=== PATIENT | male | born 1970 | race African-American/Black ===

== ENCOUNTER 2019-02-10 17:24 | Inpatient (IN) | payer OTHER ==
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
[2019-02-10] MEDS ORDERED: hydrOXYzine PAMOATE 25 MG CAPSULE (FP) PO PRN (23:15)
[2019-02-10] MEDS ORDERED: BISMUTH SUBSALICYLATE 524 MG/30 ML UD PO PRN (23:15)
[2019-02-10] MEDS ORDERED: ACETAMINOPHEN 325 MG TABLET (FP) PO PRN ×2 (23:15)
[2019-02-10] MEDS ORDERED: MAGNESIUM CITRATE 300 ML BOTTLE PO PRN (23:15)
[2019-02-10] MEDS ORDERED: P-EPHED 60MG/TRIPROLIDI 2.5MG TABLET PO PRN (23:15)
[2019-02-10] MEDS ORDERED: DICYCLOMINE HCL 10 MG CAPSULE PO PRN (23:15)
[2019-02-10] MEDS ORDERED: guaiFENesin 200 MG/10 ML 10 ML UNIT-DOSE CUPS PO PRN (23:15)
[2019-02-10] MEDS ORDERED: IBUPROFEN 400 MG TABLET (FP) PO PRN (23:15)
[2019-02-10] MEDS ORDERED: chlordiazePOXIDE HCL 25 MG CAPSULE PO PRN (23:15)
[2019-02-10] MEDS ORDERED: MAG HYDROX/AL HYDROX/SIMETH 30 ML UNIT-DOSE CUP PO PRN (23:15)
[2019-02-10] MEDS ORDERED: NICOTINE POLACRILEX 2 MG GUM BUC PRN (23:15)
[2019-02-10] MEDS ORDERED: MENTHOL/PHENOL 1 EACH UD MM PRN (23:15)
[2019-02-10] MEDS ORDERED: METHOCARBAMOL 500 MG TABLET PO PRN (23:15)
[2019-02-10] MEDS ORDERED: MAGNESIUM HYDROX 2400MG/30ML ORAL SUSPENSION 30 ML CUP PO PRN (23:15)
[2019-02-10] MEDS ORDERED: ONDANSETRON *ODT* 4 MG TABLET SL PRN (23:15)
[2019-02-11] MEDS: chlordiazePOXIDE HCL 25 MG CAPSULE PO SCH ×5 (00:47→22:29)
--- NOTE | 2019-02-11 10:21 | PN ---
S CIWA - CIWA Score Nausea/Vomitin-No Nausea/No Vomiting Muscle Tremors: 3 Anxiety: 3 Agitation: 3 Paroxysmal Sweats: 3 Orientation: 0-Oriented Tacttile Disturbances: 0-None Auditory Disturbances: 0-None Visual Disturbances: 0-None Headache: 0-None Present CIWA-Ar Total Score: 12 BHS Progress Note (SOAP) Subjective: agitation irritable interrupted sleep sweats Objective: 02/11/19 10:20 Vital Signs Temperature 97.9 F 02/11/19 09:13 Pulse Rate 81 02/11/19 09:13 Respiratory Rate 18 02/11/19 09:13 Blood Pressure 140/75 02/11/19 09:13 O2 Sat by Pulse Oximetry (%) labs pending aaox3 ambulating no acute distress Assessment: 02/11/19 10:21 withdrawal sx Plan: continue detox increase fluids
[2019-02-11] MEDS: PRENATAL VITAMINS W/ FOLIC ACID TABLET (FP) PO SCH (10:36)
[2019-02-11] MEDS: NICOTINE 21 MG/24 HOURS TOPICAL PATCH TD SCH (10:36)
--- NOTE | 2019-02-11 11:50 | CONSULT ---
[facility] Psychiatric Consult - Data Date of interview: 02/11/19 Admission source: Self-referred Identifying data: Mr Adrian is a 48 years old single Black male, father of 2 daughters, unemployed receiving SSI, homeless seeking detox treatment for alcohol and cocaine Substance Abuse History: Reports history of alcohol and cocaine use. Refer to addiction conselor's summary for further information Medical History: Unremarkable except for 7 Fingers amputated in 1994 from frostbite(distal amputations). Smokes cigarettes 1ppd Psychiatric History: Patient is well known to [facility] from a previoua admission in this facility in May 2016. He reports that his first psychiatric contact occured more than 20 years ago when he was diagnosed with Bipolar Depression. Reports history of 2 previous psychiatric hospitalizations both at [facility]. Most recent one was in 2010 for depression in the context of alcohol intoxication. Reports that he used to receive psychiatric outpatient services at [facility] and his case was closed because of his drinking. In early 2015, he was residing at [facility] where he was seeing a psychiatrist and was prescribed Depakote 500 mg po BID, Seroquel 100 mg po HS, Zoloft 100 mg po daily and Abilify. He was unsue of Abilify dosage. In May 2016 he was admitted to this facility for both detox and rehab and he was discharged on 07/05/2016 on Depakote 500 mg po BID, Seroquel 100 mg po HS, Zoloft 100 mg po daily and Abilify 10 mg po daily. Reports no adherence to OPD care and medication. Told journalists and other writers that he last took medictions(Zoloft, Seroquel) sometime i 2017. Denies previos suicidal attempt. At present, denies exoeriencing psychotic, manic or depressive symptoms, S/H ideations. However, reports sleeping poorly Physical/Sexual Abuse/Trauma History: Denies history of Physical, sexual abuse as well as DV relationship Additional Comment: Denies criminal record Mental Status Exam - Mental Status Exam Alert and Oriented to: Time, Place, Person Cognitive Function: Fair Patient Appearance: Well Groomed Mood: Hopeful, Euthymic Affect: Constricted Patient Behavior: Cooperative Speech Pattern: Clear Voice Loudness: Normal Thought Process: Intact, Goal Oriented Hallucinations: Denies Suicidal Ideation: Denies Homicidal Ideation: Denies Insight/Judgement: Poor Sleep: Poorly Appetite: Poor Muscle strength/Tone: Normal Gait/Station: Normal Psychiatric Findings - Problem List ([place] 1, 2,3) (1) Bipolar disorder Current Visit: Yes Status: Chronic (2) Substance-induced sleep disorder Current Visit: Yes Status: Acute (3) Alcohol dependence with uncomplicated withdrawal Current Visit: Yes Status: Acute (4) Cocaine dependence Current Visit: Yes Status: Acute Qualifiers: Substance use status: uncomplicated Qualified Code(s): F14.20 - Cocaine dependence, uncomplicated (5) Nicotine dependence Current Visit: Yes Status: Chronic (6) s/p multiple distal digit amputations [place]. Current Visit: No Status: Active (7) History of abdominal surgery Current Visit: No Status: Acute - Initial Treatment Plan Initial Treatment Plan: 1) Start Zoloft 50 mg po daily and Seroquel 100 mg po HS. 2) Continue inpatient detoxification
[2019-02-11 12:26] LABS: HEMATOCRIT 40.3 % (35.4-49); HEMOGLOBIN 13.4 GM/dL (11.7-16.9); MCHC 33.2 g/dl (32.0-35.9); MEAN CELL VOLUME 87.2 fl (80-96); MEAN PLT VOLUME 7.6 fl (7.5-11.1); PLATELET COUNT 351 K/MM3 (134-434); RBC 4.62 M/mm3 (4.00-5.60); RDW 13.9 % (11.9-15.9)
[2019-02-11 12:28] LABS: EPI CELLS 3.8 /HPF (0-5); URINE APPEARANCE CLEAR; URINE BACTERIA 2.2 /hpf (NEGATIVE); URINE BILIRUBIN NEGATIVE (NEGATIVE); URINE CASTS 126 /hpf (0-8); URINE COLOR DK YELLOW; URINE GLUCOSE (UA) NEGATIVE (NEGATIVE); URINE KETONE TRACE (NEGATIVE); URINE LEUK ESTERASE TRACE (NEGATIVE); URINE NITRITE NEGATIVE (NEGATIVE); URINE PROTEIN TRACE (NEGATIVE); URINE RBC 3 /hpf (0-4); URINE WBC 2 /hpf (0-5)
[2019-02-11 12:33] LABS: ALBUMIN 3.8 g/dl (3.4-5.0); ALK PHOS 87 U/L (45-117); ANION GAP 9 MMOL/L (8-16); BILIRUBIN,TOTAL 0.2 mg/dL (0.2-1); BLOOD UREA NITROGEN 15 mg/dL (7-18); CALCIUM 9.3 mg/dL (8.5-10.1); CHLORIDE 107 mmol/L (98-107); CO2 26 mmol/L (21-32); CREATININE 1.1 mg/dL (0.55-1.3); GLUCOSE,RANDOM 80 mg/dL (74-106); POTASSIUM 3.6 mmol/L (3.5-5.1); SGOT/AST 21 U/L (15-37); SGPT/ALT 22 U/L (13-61); SODIUM 142 mmol/L (136-145); TOT PROT 7.2 g/dl (6.4-8.2)
[2019-02-11] MEDS: SERTRALINE HCL 50 MG TABLET (FP) PO SCH (12:39)
[2019-02-11 12:59] LABS: URINE CRYSTALS CA OXALATE /hpf
[2019-02-11] MEDS: THIAMINE HCL 100 MG TABLET (FP) PO SCH (22:29)
[2019-02-11] MEDS: MELATONIN 5 MG TABLETS PO PRN (22:29)
[2019-02-11] MEDS: QUEtiapine FUMARATE 100 MG TABLET (FP) PO SCH (22:29)
[2019-02-12] MEDS: chlordiazePOXIDE HCL 25 MG CAPSULE PO SCH ×3 (06:34→17:31)
--- NOTE | 2019-02-12 09:24 | PN ---
[facility] CIWA - CIWA Score Nausea/Vomitin-No Nausea/No Vomiting Muscle Tremors: 2 Anxiety: 3 Agitation: 4-Moderately Restless Paroxysmal Sweats: 2 Orientation: 0-Oriented Tacttile Disturbances: 0-None Auditory Disturbances: 0-None Visual Disturbances: 0-None Headache: 0-None Present CIWA-Ar Total Score: 11 S Progress Note (SOAP) Subjective: agitation anxiety restless Objective: 02/12/19 09:17 Vital Signs Temperature 96.8 F L 02/12/19 07:44 Pulse Rate 66 02/12/19 07:44 Respiratory Rate 18 02/12/19 07:44 Blood Pressure 134/78 02/12/19 07:44 O2 Sat by Pulse Oximetry (%) Laboratory Tests 02/11/19 02/11/19 02/11/19 07:00 07:00 07:00 WBC 8.0 RBC 4.62 Hgb 13.4 Hct 40.3 MCV 87.2 MCH 29.0 MCHC 33.2 RDW 13.9 Plt Count 351 D MPV 7.6 Sodium 142 Potassium 3.6 Chloride 107 Carbon Dioxide 26 Anion Gap 9 BUN 15 Creatinine 1.1 Creat Clearance w eGFR 71.15 Random Glucose 80 Calcium 9.3 Total Bilirubin 0.2 AST 21 ALT 22 Alkaline Phosphatase 87 Total Protein 7.2 Albumin 3.8 Urine Color Urine Appearance Urine pH Ur Specific [place] Urine Protein Urine Glucose (UA) Urine Ketones Urine Blood Urine Nitrite Urine Bilirubin Urine Urobilinogen Ur Leukocyte Esterase Urine WBC (Auto) Urine RBC (Auto) Urine Casts (Auto) U Epithel Cells (Auto) U Sm Round Cell (Auto) Urine Crystals (Auto) Urine Bacteria (Auto) RPR Titer Nonreactive 02/11/19 07:00 WBC RBC Hgb Hct MCV MCH MCHC RDW Plt Count MPV Sodium Potassium Chloride Carbon Dioxide Anion Gap BUN Creatinine Creat Clearance w eGFR Random Glucose Calcium Total Bilirubin AST ALT Alkaline Phosphatase Total Protein Albumin Urine Color Dk yellow Urine Appearance Clear Urine pH 5.0 D Ur Specific [place] 1.034 Urine Protein Trace Urine Glucose (UA) Negative Urine Ketones Trace H Urine Blood Negative Urine Nitrite Negative Urine Bilirubin Negative Urine Urobilinogen 1.0 Ur Leukocyte Esterase Trace Urine WBC (Auto) 2 Urine RBC (Auto) 3 Urine Casts (Auto) 126 U Epithel Cells (Auto) 3.8 U Sm Round Cell (Auto) None seen Urine Crystals (Auto) Ca oxalate Urine Bacteria (Auto) 2.2 RPR Titer aaox3 ambulating no acute distress Assessment: 02/12/19 09:42 mild withdrawal sx Plan: continue detox increase fluids
[2019-02-12] MEDS: NICOTINE 21 MG/24 HOURS TOPICAL PATCH TD SCH (10:11)
[2019-02-12] MEDS: SERTRALINE HCL 50 MG TABLET (FP) PO SCH (10:12)
[2019-02-12] MEDS: PRENATAL VITAMINS W/ FOLIC ACID TABLET (FP) PO SCH (10:12)
[2019-02-12] MEDS: THIAMINE HCL 100 MG TABLET (FP) PO SCH (22:16)
[2019-02-12] MEDS: QUEtiapine FUMARATE 100 MG TABLET (FP) PO SCH (22:16)
[2019-02-12] MEDS: chlordiazePOXIDE HCL 10 MG CAPSULE PO SCH (22:16)
[2019-02-12] MEDS: MELATONIN 5 MG TABLETS PO PRN (22:16)
[2019-02-12] MEDS ORDERED: chlordiazePOXIDE HCL 10 MG CAPSULE PO PRN (23:00)
[2019-02-13] MEDS: chlordiazePOXIDE HCL 10 MG CAPSULE PO SCH (05:41)
[2019-02-13 06:43] VITALS: BP 117/65; PULSE 70; TEMP 97.4
--- NOTE | 2019-02-13 09:20 | DS ---
[facility] Detox Discharge Summary Admission Date: 02/10/19 Discharge Date: 02/13/19 - History Present History: Alcohol Dependence, Cocaine Dependence - Physical Exam Results Vital Signs: Vital Signs Temperature 97.4 F L 02/13/19 06:42 Pulse Rate 70 02/13/19 06:42 Respiratory Rate 18 02/13/19 06:42 Blood Pressure 117/65 02/13/19 06:42 O2 Sat by Pulse Oximetry (%) - Treatment Hospital Course: Detox Protocol Followed, Detoxed Safely, Responded well, Discharged Condition Good, Rehab Referral Accepted - Medication Discharge Medications: Ambulatory Orders NK [No Known Home Medication] 02/10/19 - Diagnosis (1) Alcohol dependence with uncomplicated withdrawal Current Visit: Yes Status: Chronic (2) Cocaine dependence Current Visit: Yes Status: Chronic Qualifiers: Substance use status: uncomplicated Qualified Code(s): F14.20 - Cocaine dependence, uncomplicated (3) Substance induced mood disorder Current Visit: Yes Status: Acute (4) Substance-induced sleep disorder Current Visit: Yes Status: Acute (5) Bipolar disorder Current Visit: Yes Status: Chronic (6) Insomnia Current Visit: Yes Status: Chronic Qualifiers: Insomnia type: alcohol-induced Qualified Code(s): F10.982 - Alcohol use, unspecified with alcohol-induced sleep disorder (7) Nicotine dependence Current Visit: Yes Status: Chronic (8) s/p multiple distal digit amputations [place]. Current Visit: No Status: Chronic (9) History of abdominal surgery Current Visit: No Status: Acute (10) History of frostbite Current Visit: No Status: Acute - AMA Did Patient Leave Against Medical Advice: No (referred to [facility])
[2019-02-13] MEDS ORDERED: chlordiazePOXIDE HCL 10 MG CAPSULE PO SCH (23:00)
== END 2019-02-13 12:00 | disposition other institution (70) | DRG 774 ==
LOC: YASAS 17:24 → Y6N 23:52
PROVIDERS: ADMIT Surgery; ATTEND Surgery
PROC: HZ2ZZZZ Detoxification Services for Substance Abuse Treatment (ICD-10-PCS; principal; 2019-02-10)
DX: F10.230 Alcohol dependence with withdrawal, uncomplicated (principal); F14.20 Cocaine dependence, uncomplicated; F17.210 Nicotine dependence, cigarettes, uncomplicated; F19.24 Other psychoactive substance dependence with psychoactive substance-induced mood disorder; F19.282 Other psychoactive substance dependence with psychoactive substance-induced sleep disorder; F31.9 Bipolar disorder, unspecified; Z91.89 Other specified personal risk factors, not elsewhere classified; Z89.022 Acquired absence of left finger(s); Z89.021 Acquired absence of right finger(s); X31.XXXS Exposure to excessive natural cold, sequela
CPT/HCPCS: 36415; 71046-TC-FY; 80053; 81003; 85027; 86593

== ENCOUNTER 2019-09-24 09:37 | Inpatient (IN) | payer OTHER ==
[2019-09-24 09:57] VITALS: BMI 28.4
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
[2019-09-24] MEDS ORDERED: IBUPROFEN 400 MG TABLET (FP) PO PRN (11:03)
[2019-09-24] MEDS ORDERED: MENTHOL/PHENOL 1 EACH UD MM PRN (11:03)
[2019-09-24] MEDS ORDERED: MAG HYDROX/AL HYDROX/SIMETH 30 ML UNIT-DOSE CUP PO PRN (11:03)
[2019-09-24] MEDS ORDERED: MAGNESIUM HYDROX 2400MG/30ML ORAL SUSPENSION 30 ML CUP PO PRN (11:03)
[2019-09-24] MEDS ORDERED: BISMUTH SUBSALICYLATE 262 MG/15 ML BTL PO PRN (11:03)
[2019-09-24] MEDS ORDERED: MAGNESIUM CITRATE 300 ML BOTTLE PO PRN (11:03)
[2019-09-24] MEDS ORDERED: hydrOXYzine PAMOATE 25 MG CAPSULE (FP) PO PRN (11:03)
[2019-09-24] MEDS ORDERED: ACETAMINOPHEN 325 MG TABLET (FP) PO PRN ×2 (11:03)
[2019-09-24] MEDS ORDERED: chlordiazePOXIDE HCL 10 MG CAPSULE PO PRN (11:04)
[2019-09-24] MEDS: chlordiazePOXIDE HCL 25 MG CAPSULE PO SCH ×2 (12:46→21:18)
[2019-09-24 14:42] LABS: HEMATOCRIT 36.6 % (35.4-49); HEMOGLOBIN 12.2 GM/dL (11.7-16.9); MCHC 33.4 g/dl (32.0-35.9); MEAN CELL VOLUME 83.6 fl (80-96); MEAN PLT VOLUME 7.2 fl (7.5-11.1); PLATELET COUNT 352 K/MM3 (134-434); RBC 4.38 M/mm3 (4.00-5.60); RDW 14.9 % (11.9-15.9); WHITE BLOOD COUNT 13.3 K/mm3 (4.0-10.0)
[2019-09-24 15:03] LABS: ALBUMIN 4.2 g/dl (3.4-5.0); BILIRUBIN,TOTAL 0.4 mg/dL (0.2-1); BLOOD UREA NITROGEN 16.6 mg/dL (7-18); CALCIUM 9.5 mg/dL (8.5-10.1); POTASSIUM 4.3 mmol/L (3.5-5.1); TOT PROT 7.3 g/dl (6.4-8.2)
[2019-09-24] MEDS: THIAMINE HCL 100 MG TABLET (FP) PO SCH (21:18)
[2019-09-24] MEDS: MELATONIN 5 MG TABLETS PO PRN (21:18)
[2019-09-25] MEDS: chlordiazePOXIDE HCL 25 MG CAPSULE PO SCH ×3 (05:26→21:11)
[2019-09-25] MEDS: PRENATAL VITAMINS W/ FOLIC ACID TABLET (FP) PO SCH (11:14)
--- NOTE | 2019-09-25 11:31 | PN ---
S CIWA - CIWA Score Nausea/Vomitin-No Nausea/No Vomiting Muscle Tremors: 2 Anxiety: 1-Mildly Anxious Agitation: 1-Slight > Activity Paroxysmal Sweats: 2 Orientation: 0-Oriented Tacttile Disturbances: 0-None Auditory Disturbances: 0-None Visual Disturbances: 0-None Headache: 0-None Present CIWA-Ar Total Score: 6 BHS Progress Note (SOAP) Subjective: tired sweats mild shakes interrupted sleep Objective: 09/25/19 11:31 Vital Signs Temperature 98.1 F 09/25/19 09:20 Pulse Rate 102 H 09/25/19 09:20 Respiratory Rate 16 09/25/19 09:20 Blood Pressure 117/77 09/25/19 09:20 O2 Sat by Pulse Oximetry (%) Laboratory Tests 09/24/19 09/24/19 09/24/19 10:25 10:25 10:25 WBC 13.3 H RBC 4.38 Hgb 12.2 Hct 36.6 MCV 83.6 MCH 28.0 MCHC 33.4 RDW 14.9 Plt Count 352 MPV 7.2 L Sodium 138 Potassium 4.3 Chloride 107 Carbon Dioxide 24 Anion Gap 8 BUN 16.6 Creatinine 1.0 Est GFR (CKD-EPI)AfAm 101.98 Est GFR (CKD-EPI)NonAf 87.99 Random Glucose 74 Calcium 9.5 Total Bilirubin 0.4 AST 44 H ALT 30 Alkaline Phosphatase 88 Total Protein 7.3 Albumin 4.2 RPR Titer Nonreactive labs noted aaox3 ambulating no acute distress Assessment: 09/25/19 11:31 withdrawal Plan: continue detox increase fluids
[2019-09-25] MEDS: THIAMINE HCL 100 MG TABLET (FP) PO SCH (21:11)
[2019-09-25] MEDS: MELATONIN 5 MG TABLETS PO PRN (21:11)
[2019-09-26] MEDS: chlordiazePOXIDE HCL 10 MG CAPSULE PO SCH ×3 (06:14→22:44)
[2019-09-26] MEDS: PRENATAL VITAMINS W/ FOLIC ACID TABLET (FP) PO SCH (10:08)
--- NOTE | 2019-09-26 15:42 | PN ---
[facility] CIWA - CIWA Score Nausea/Vomitin-No Nausea/No Vomiting Muscle Tremors: None Anxiety: 0-No Anxiety, at Ease Agitation: 2 Paroxysmal Sweats: No Perspiration Orientation: 0-Oriented Tacttile Disturbances: 0-None Auditory Disturbances: 0-None Visual Disturbances: 1-Very Mild Sensitivity Headache: 0-None Present CIWA-Ar Total Score: 3 BHS Progress Note (SOAP) Subjective: Patient denies current Withdrawal / Detox symptoms and reports that he feels well overall at this time. Objective: PATIENT A & O X 3, OBSERVED AMBULATING ON DETOX UNIT UNASSISTED. IN NO ACUTE DISTRESS. PATIENT AFEBRILE. ADMISSION WBC LEVEL NOTED TO BE ELEVATED (13.3). PATIENT DENIES CHEST PAIN AND SOB. PATIENT DENIES HISTORY OF INTRAVENOUS DRUG USE. PATIENT DENIES ANY UNUSUAL URINARY COMPLAINTS (BURNING, PAIN, FREQUENCY, URGENCY , HESITANCY, VISUALIZATION OF BLOOD IN URINE). 09/26/19 15:38 Vital Signs Temperature 98.0 F 09/26/19 14:36 Pulse Rate 92 H 09/26/19 14:36 Respiratory Rate 18 09/26/19 14:36 Blood Pressure 131/79 09/26/19 14:36 O2 Sat by Pulse Oximetry (%) Laboratory Tests 09/24/19 09/24/19 09/24/19 10:25 10:25 10:25 WBC 13.3 H RBC 4.38 Hgb 12.2 Hct 36.6 MCV 83.6 MCH 28.0 MCHC 33.4 RDW 14.9 Plt Count 352 MPV 7.2 L Sodium 138 Potassium 4.3 Chloride 107 Carbon Dioxide 24 Anion Gap 8 BUN 16.6 Creatinine 1.0 Est GFR (CKD-EPI)AfAm 101.98 Est GFR (CKD-EPI)NonAf 87.99 Random Glucose 74 Calcium 9.5 Total Bilirubin 0.4 AST 44 H ALT 30 Alkaline Phosphatase 88 Total Protein 7.3 Albumin 4.2 RPR Titer Nonreactive LABS NOTED. 09/26/19 15:39 Assessment: 09/26/19 15:38 WITHDRAWAL SYMPTOMS. 09/26/19 15:38 Plan: CONTINUE DETOX. INCREASE DAILY ORAL WATER INTAKE. PATIENT SCHEDULED FOR D/C FROM DETOX UNIT TOMORROW.
[2019-09-26] MEDS: THIAMINE HCL 100 MG TABLET (FP) PO SCH (22:44)
[2019-09-27] MEDS ORDERED: chlordiazePOXIDE HCL 10 MG CAPSULE PO ONE (05:00)
[2019-09-27] MEDS: PRENATAL VITAMINS W/ FOLIC ACID TABLET (FP) PO SCH (10:52)
--- NOTE | 2019-09-27 11:08 | DS ---
[facility] Detox Discharge Summary Admission Date: 09/24/19 Discharge Date: 09/27/19 - History Present History: Alcohol Dependence, Cocaine Dependence Additional Comments: Pt successfully completed detox and discharged safely. Instructed to follow up with PCP within 1-2 weeks. Pt discharged in stable condition. Pertinent Past History: Nicotine dependence Alcohol dependence Cocaine/crack dependence - Physical Exam Results Vital Signs: Vital Signs Temperature 96.6 F L 09/27/19 10:42 Pulse Rate 77 09/27/19 10:42 Respiratory Rate 18 09/27/19 10:42 Blood Pressure 146/67 09/27/19 10:42 O2 Sat by Pulse Oximetry (%) - Medication Discharge Medications: Ambulatory Orders NK [No Known Home Medication] 02/10/19
[2019-09-27] MEDS ORDERED: cloNIDine HCL 0.1 MG TABLET PO PRN (11:14)
--- NOTE | 2019-09-27 11:18 | PN ---
[facility] CIWA - CIWA Score Nausea/Vomitin-No Nausea/No Vomiting Muscle Tremors: None Anxiety: 2 Agitation: 2 Paroxysmal Sweats: No Perspiration Orientation: 0-Oriented Tacttile Disturbances: 0-None Auditory Disturbances: 0-None Visual Disturbances: 0-None Headache: 0-None Present CIWA-Ar Total Score: 4 BHS Progress Note (SOAP) Subjective: Anxious, interrupted sleep Objective: 09/27/19 11:13 Last Vital Signs Temp Pulse Resp BP Pulse Ox 96.6 F L 77 18 146/67 09/27/19 10:42 09/27/19 10:42 09/27/19 10:42 09/27/19 10:42 Elevated b/p, denies htn, not on medication Laboratory Tests 09/24/19 09/24/19 09/24/19 10:25 10:25 10:25 WBC 13.3 H RBC 4.38 Hgb 12.2 Hct 36.6 MCV 83.6 MCH 28.0 MCHC 33.4 RDW 14.9 Plt Count 352 MPV 7.2 L Sodium 138 Potassium 4.3 Chloride 107 Carbon Dioxide 24 Anion Gap 8 BUN 16.6 Creatinine 1.0 Est GFR (CKD-EPI)AfAm 101.98 Est GFR (CKD-EPI)NonAf 87.99 Random Glucose 74 Calcium 9.5 Total Bilirubin 0.4 AST 44 H ALT 30 Alkaline Phosphatase 88 Total Protein 7.3 Albumin 4.2 RPR Titer Nonreactive Labs reviewed: wbc 13.3 (high), AST 44 (mildly elevated) Assessment: 09/27/19 11:17 Withdrawal sxs Noted with elevated b/p, leukocytosis and transaminitis Plan: Continue detox Encouraged PO water intake Patient was scheduled for discharge today; discharge canceled due to continuous withdrawal sxs and abnormal lab results Consider discharging patient tomorrow if leukocytosis resolved Elevated b/p without dx of htn: denies htn, most likely r/t withdrawal sxs, start clonidine 0.1mg PO q8hr prn Leukocytosis: asymptomatic, repeat CBC, send UA Transaminitis: most likely due to alcoholism, repeat AST
[2019-09-27] MEDS: THIAMINE HCL 100 MG TABLET (FP) PO SCH (22:06)
[2019-09-27] MEDS: MELATONIN 5 MG TABLETS PO PRN (22:07)
--- NOTE | 2019-09-28 08:52 | DS ---
[facility] Detox Discharge Summary Admission Date: 09/24/19 Discharge Date: 09/28/19 - History Present History: Alcohol Dependence, Cocaine Dependence - Physical Exam Results Vital Signs: Vital Signs Temperature 97.9 F 09/28/19 05:47 Pulse Rate 64 09/28/19 05:47 Respiratory Rate 18 09/28/19 05:47 Blood Pressure 117/64 09/28/19 05:47 O2 Sat by Pulse Oximetry (%) Pertinent Admission Physical Exam Findings: pt arrived in withdrawals Vital Signs Temperature 97.9 F 09/28/19 05:47 Pulse Rate 64 09/28/19 05:47 Respiratory Rate 18 09/28/19 05:47 Blood Pressure 117/64 09/28/19 05:47 O2 Sat by Pulse Oximetry (%) Laboratory Tests 09/24/19 09/24/19 09/24/19 10:25 10:25 10:25 WBC 13.3 H RBC 4.38 Hgb 12.2 Hct 36.6 MCV 83.6 MCH 28.0 MCHC 33.4 RDW 14.9 Plt Count 352 MPV 7.2 L Sodium 138 Potassium 4.3 Chloride 107 Carbon Dioxide 24 Anion Gap 8 BUN 16.6 Creatinine 1.0 Est GFR (CKD-EPI)AfAm 101.98 Est GFR (CKD-EPI)NonAf 87.99 Random Glucose 74 Calcium 9.5 Total Bilirubin 0.4 AST 44 H ALT 30 Alkaline Phosphatase 88 Total Protein 7.3 Albumin 4.2 RPR Titer Nonreactive pt is aaox3 ambulating no acute distress no s/s of withdrawals - Treatment Hospital Course: Detox Protocol Followed, Detoxed Safely, Responded well, Discharged Condition Good, Rehab Referral Accepted Patient has Accepted a Rehab Referral to: pt referred to [facility] reh - Medication Discharge Medications: Ambulatory Orders NK [No Known Home Medication] 02/10/19 - Diagnosis (1) Cocaine dependence Current Visit: Yes Status: Chronic Qualifiers: Substance use status: uncomplicated Qualified Code(s): F14.20 - Cocaine dependence, uncomplicated (2) Nicotine dependence Current Visit: Yes Status: Chronic (3) History of abdominal surgery Current Visit: No Status: Acute (4) History of frostbite Current Visit: No Status: Acute (5) Substance induced mood disorder Current Visit: No Status: Acute (6) Substance-induced sleep disorder Current Visit: No Status: Acute (7) Alcohol dependence with uncomplicated withdrawal Current Visit: Yes Status: Chronic (8) Bipolar disorder Current Visit: No Status: Chronic (9) Insomnia Current Visit: No Status: Chronic Qualifiers: Insomnia type: alcohol-induced Qualified Code(s): F10.982 - Alcohol use, unspecified with alcohol-induced sleep disorder (10) s/p multiple distal digit amputations [place]. Current Visit: No Status: Chronic - AMA Did Patient Leave Against Medical Advice: No
[2019-09-28] MEDS: PRENATAL VITAMINS W/ FOLIC ACID TABLET (FP) PO SCH (10:44)
[2019-09-28 12:18] LABS: BASO % 0.6 % (0-2.0); EOS % 0.7 % (0-4.5); HEMATOCRIT 39.8 % (35.4-49); HEMOGLOBIN 13.4 GM/dL (11.7-16.9); LYMPH % 20.9 % (8-40); MCH 28.1 pg (25.7-33.7); MCHC 33.7 g/dl (32.0-35.9); MEAN CELL VOLUME 83.6 fl (80-96); MEAN PLT VOLUME 7.2 fl (7.5-11.1); MONO % 8.4 % (3.8-10.2); NEUT % 69.4 % (42.8-82.8); PLATELET COUNT 370 K/MM3 (134-434); RBC 4.76 M/mm3 (4.00-5.60); RDW 14.5 % (11.9-15.9); WHITE BLOOD COUNT 10.9 K/mm3 (4.0-10.0)
[2019-09-28 17:13] VITALS: BP 125/60; PULSE 75; TEMP 99.1
== END 2019-09-28 18:27 | disposition other institution (70) | DRG 774 ==
LOC: YASAS 09:37 → Y6N 11:49
PROVIDERS: ADMIT Allergy & Immunology; ATTEND Allergy & Immunology
PROC: HZ2ZZZZ Detoxification Services for Substance Abuse Treatment (ICD-10-PCS; principal; 2019-09-24)
DX: F10.230 Alcohol dependence with withdrawal, uncomplicated (principal); F14.20 Cocaine dependence, uncomplicated; F17.210 Nicotine dependence, cigarettes, uncomplicated; F19.282 Other psychoactive substance dependence with psychoactive substance-induced sleep disorder; F19.24 Other psychoactive substance dependence with psychoactive substance-induced mood disorder; F31.9 Bipolar disorder, unspecified; R03.0 Elevated blood-pressure reading, without diagnosis of hypertension; D72.829 Elevated white blood cell count, unspecified; Z89.022 Acquired absence of left finger(s); Z89.021 Acquired absence of right finger(s); X31.XXXS Exposure to excessive natural cold, sequela
CPT/HCPCS: 36415; 80053; 84450; 85025; 85027; 86593

== ENCOUNTER 2019-09-28 15:37 | Inpatient (IN) | payer OTHER ==
[2019-09-28] MEDS ORDERED: MAGNESIUM HYDROX 2400MG/30ML ORAL SUSPENSION 30 ML CUP PO PRN (18:54)
[2019-09-28] MEDS ORDERED: P-EPHED 60MG/TRIPROLIDI 2.5MG TABLET PO PRN (18:54)
[2019-09-28] MEDS ORDERED: LOPERAMIDE HCL 2 MG CAPSULE PO PRN (18:54)
[2019-09-28] MEDS ORDERED: MENTHOL/PHENOL 1 EACH UD MM PRN (18:54)
[2019-09-28] MEDS ORDERED: guaiFENesin 200 MG/10 ML 10 ML UNIT-DOSE CUPS PO PRN (18:54)
[2019-09-28] MEDS ORDERED: MAGNESIUM CITRATE 300 ML BOTTLE PO PRN (18:54)
[2019-09-28] MEDS ORDERED: MAG HYDROX/AL HYDROX/SIMETH 30 ML UNIT-DOSE CUP PO PRN (18:54)
[2019-09-28] MEDS ORDERED: ACETAMINOPHEN 325 MG TABLET (FP) PO PRN (18:54)
[2019-09-28] MEDS ORDERED: NICOTINE POLACRILEX 2 MG GUM BUC PRN (18:54)
[2019-09-28] MEDS: THIAMINE HCL 100 MG TABLET (FP) PO SCH (21:18)
[2019-09-28] MEDS: MELATONIN 5 MG TABLETS PO PRN (21:19)
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
[2019-09-29] MEDS: NICOTINE 7 MG/24 HOURS TOPICAL PATCH TD SCH (10:30)
[2019-09-29] MEDS: PRENATAL VITAMINS W/ FOLIC ACID TABLET (FP) PO SCH (10:30)
[2019-09-29] MEDS: MELATONIN 5 MG TABLETS PO PRN (21:45)
[2019-09-29] MEDS: THIAMINE HCL 100 MG TABLET (FP) PO SCH (21:46)
[2019-09-30] MEDS: PRENATAL VITAMINS W/ FOLIC ACID TABLET (FP) PO SCH (10:31)
[2019-09-30] MEDS: NICOTINE 7 MG/24 HOURS TOPICAL PATCH TD SCH (10:31)
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
[2019-09-30] MEDS: SERTRALINE HCL 50 MG TABLET (FP) PO SCH (11:54)
[2019-09-30] MEDS: QUEtiapine FUMARATE 50 MG TABLET PO SCH (21:24)
[2019-09-30] MEDS: THIAMINE HCL 100 MG TABLET (FP) PO SCH (21:24)
[2019-09-30] MEDS: MELATONIN 5 MG TABLETS PO PRN (21:24)
[2019-10-01] MEDS: PRENATAL VITAMINS W/ FOLIC ACID TABLET (FP) PO SCH (10:37)
[2019-10-01] MEDS: SERTRALINE HCL 50 MG TABLET (FP) PO SCH (10:37)
[2019-10-01] MEDS: NICOTINE 7 MG/24 HOURS TOPICAL PATCH TD SCH (10:37)
[2019-10-01] MEDS: MELATONIN 5 MG TABLETS PO PRN (21:13)
[2019-10-01] MEDS: THIAMINE HCL 100 MG TABLET (FP) PO SCH (21:13)
[2019-10-01] MEDS: QUEtiapine FUMARATE 50 MG TABLET PO SCH (21:13)
[2019-10-02] MEDS: NICOTINE 7 MG/24 HOURS TOPICAL PATCH TD SCH (10:20)
[2019-10-02] MEDS: PRENATAL VITAMINS W/ FOLIC ACID TABLET (FP) PO SCH (10:21)
[2019-10-02] MEDS: SERTRALINE HCL 50 MG TABLET (FP) PO SCH (10:21)
[2019-10-02] MEDS: IBUPROFEN 400 MG TABLET (FP) PO PRN (16:39)
[2019-10-02] MEDS: THIAMINE HCL 100 MG TABLET (FP) PO SCH (21:36)
[2019-10-02] MEDS: QUEtiapine FUMARATE 50 MG TABLET PO SCH (21:36)
[2019-10-03] MEDS: IBUPROFEN 400 MG TABLET (FP) PO PRN ×2 (07:06→15:02)
[2019-10-03] MEDS: SERTRALINE HCL 50 MG TABLET (FP) PO SCH (09:49)
[2019-10-03] MEDS: PRENATAL VITAMINS W/ FOLIC ACID TABLET (FP) PO SCH (09:49)
[2019-10-03] MEDS: NICOTINE 7 MG/24 HOURS TOPICAL PATCH TD SCH (09:50)
[2019-10-03] MEDS: THIAMINE HCL 100 MG TABLET (FP) PO SCH (21:09)
[2019-10-03] MEDS: MELATONIN 5 MG TABLETS PO PRN (21:09)
[2019-10-03] MEDS: QUEtiapine FUMARATE 50 MG TABLET PO SCH (21:09)
[2019-10-04] MEDS: SERTRALINE HCL 50 MG TABLET (FP) PO SCH (10:25)
[2019-10-04] MEDS: PRENATAL VITAMINS W/ FOLIC ACID TABLET (FP) PO SCH (10:25)
[2019-10-04] MEDS: NICOTINE 7 MG/24 HOURS TOPICAL PATCH TD SCH (10:26)
[2019-10-04] MEDS: THIAMINE HCL 100 MG TABLET (FP) PO SCH (21:16)
[2019-10-04] MEDS: MELATONIN 5 MG TABLETS PO PRN (21:16)
[2019-10-04] MEDS: QUEtiapine FUMARATE 50 MG TABLET PO SCH (21:16)
[2019-10-05] MEDS: SERTRALINE HCL 50 MG TABLET (FP) PO SCH (10:52)
[2019-10-05] MEDS: PRENATAL VITAMINS W/ FOLIC ACID TABLET (FP) PO SCH (10:52)
[2019-10-05] MEDS: NICOTINE 7 MG/24 HOURS TOPICAL PATCH TD SCH (10:53)
[2019-10-05] MEDS ORDERED: NICOTINE POLACRILEX 4 MG GUM BUC PRN (10:59)
--- NOTE | 2019-10-05 11:00 | PN ---
[facility] Progress Note Note: Pt requesting to increase Nicotine patch to 21 mg daily because current 7 mg not effective for him. Vital Signs - 24 hr 10/05/19 10/05/19 10/05/19 00:30 03:30 07:35 Temperature 99.0 F Pulse Rate 86 Respiratory 18 18 18 Rate Blood Pressure 109/69 Alert o x 3 nad A/P Nicotine dependence Increase Nicotine 21 mg TD daily as directed.
[2019-10-05] MEDS: NICOTINE 21 MG/24 HOURS TOPICAL PATCH TD SCH (12:29)
[2019-10-05] MEDS: QUEtiapine FUMARATE 50 MG TABLET PO SCH (21:47)
[2019-10-05] MEDS: MELATONIN 5 MG TABLETS PO PRN (21:47)
[2019-10-05] MEDS: THIAMINE HCL 100 MG TABLET (FP) PO SCH (21:47)
[2019-10-06] MEDS: PRENATAL VITAMINS W/ FOLIC ACID TABLET (FP) PO SCH (11:32)
[2019-10-06] MEDS: SERTRALINE HCL 50 MG TABLET (FP) PO SCH (11:32)
[2019-10-06] MEDS: NICOTINE 21 MG/24 HOURS TOPICAL PATCH TD SCH (11:32)
--- NOTE | 2019-10-06 12:13 | DS ---
[facility] Rehab Discharge Summary - [facility] Rehab Discharge Summary Admission Date: 09/28/19 Discharge Date: 10/07/19 - History Present History: Alcohol dependence, Cocaine dependence Additional Comments: Pt is a 48 y/o male admitted to rehab and scheduled to discharge tomorrow. Pt has been referred to [facility] CD aftercare for further continued treatment. Pt reports he has a PCP, Dr. Bernardo at [facility] services. Pertinent Past History: Hx of Frostbite; s/p multiple digits amputation. s/p abdominal sx bipolar disorder - Discharge Physical Exam Vital Signs: Vital Signs Temperature 98.2 F 10/06/19 07:24 Pulse Rate 83 10/06/19 07:24 Respiratory Rate 18 10/06/19 07:24 Blood Pressure 119/68 10/06/19 07:24 O2 Sat by Pulse Oximetry (%) Alert o x 3 nad oob ambulating with steady gait cardiac:s1 s2 Pertinent Admission Physical Exam Findings: Unremarkable - Treatment Discharge Condition: Discharge condition good Hospital Course: Rehabilitated safely and responded well CD aftercare accepted - Medication Discharge Medications: Ambulatory Orders Quetiapine Fumarate [Seroquel -] 50 mg PO HS #30 tablet 10/06/19 Sertraline HCl [Zoloft] 100 mg PO DAILY #30 tablet 10/06/19 - Medication-Assisted Treatment (MAT) Medication-Assisted Treatment (MAT): No - Discharge Instructions Diet, activity, other medical instructions: Diet:regular Activity: oob ad pranay Other medical instructions:follow up with PCP within 1-2 weeks after discharge at [facility] and CD aftercare at [facility] Services as recommended and scheduled. - Diagnosis (1) Alcohol dependence Current Visit: Yes Status: Chronic Qualifiers: Substance use status: uncomplicated Qualified Code(s): F10.20 - Alcohol dependence, uncomplicated (2) Cocaine dependence Current Visit: Yes Status: Chronic Qualifiers: Substance use status: uncomplicated Qualified Code(s): F14.20 - Cocaine dependence, uncomplicated (3) Nicotine dependence Current Visit: Yes Status: Chronic (4) s/p multiple distal digit amputations [place]. Current Visit: Yes Status: Chronic - Follow-up Referral Minutes to complete discharge: 20 - AMA Did Patient Leave Against Medical Advice: No
--- NOTE | 2019-10-06 13:14 | PN ---
[facility] Progress Note Note: Patient is scheduled for discharge tomorrow. Scripts for 30 days supply of medications(Zoloft 100 mg/day, Seroquel 50 mg/hs) will be electronically transmitted to [facility] at [facility] [place] [address]
[2019-10-06] MEDS: QUEtiapine FUMARATE 50 MG TABLET PO SCH (21:51)
[2019-10-06] MEDS: THIAMINE HCL 100 MG TABLET (FP) PO SCH (21:52)
[2019-10-06] MEDS: MELATONIN 5 MG TABLETS PO PRN (21:52)
[2019-10-07 07:09] VITALS: BP 108/70; PULSE 82; TEMP 98
--- NOTE | 2019-10-07 09:03 | PN ---
S Progress Note Note: Pt leaving today. meds for zoloft and seroquel done. Pt going to alf rehab. PE- lungs clear, heart RRR vin- alert and oriented, non focal exam, fully ambulatory d/c today- order done, discharge summary done yesterday
[2019-10-07] MEDS: PRENATAL VITAMINS W/ FOLIC ACID TABLET (FP) PO SCH (09:19)
[2019-10-07] MEDS: NICOTINE 21 MG/24 HOURS TOPICAL PATCH TD SCH (09:20)
[2019-10-07] MEDS: SERTRALINE HCL 50 MG TABLET (FP) PO SCH (09:20)
== END 2019-10-07 09:25 | disposition other institution (70) | DRG 772 ==
LOC: YASAS 15:37 → Y5N 18:43
PROVIDERS: ADMIT Neuromusculoskeletal Medicine & OMM; ATTEND Neuromusculoskeletal Medicine & OMM
PROC: HZ40ZZZ Group Counseling for Substance Abuse Treatment, Cognitive (ICD-10-PCS; principal; 2019-09-28)
DX: F10.20 Alcohol dependence, uncomplicated (principal); F14.20 Cocaine dependence, uncomplicated; F17.210 Nicotine dependence, cigarettes, uncomplicated; F19.282 Other psychoactive substance dependence with psychoactive substance-induced sleep disorder; F31.9 Bipolar disorder, unspecified; Z89.022 Acquired absence of left finger(s); Z89.021 Acquired absence of right finger(s); Z87.828 Personal history of other (healed) physical injury and trauma; X31.XXXS Exposure to excessive natural cold, sequela; Z98.890 Other specified postprocedural states

== ENCOUNTER 2020-04-25 11:40 | Inpatient (IN) | payer OTHER ==
--- NOTE | 2020-04-25 12:46 | HP ---
[facility] Rehab Assess/Revision - Admission History Admitted to Rehab from: [facility] Date of Admission to Rehab: 04/25/20 - Vital signs Vital Signs: Vital Signs Period Temp Pulse Resp BP Sys/Wilson Pulse Ox Last 24 Hr 97.5 F 72 18 114/59 96 - Findings Detox History & Physical reviewed: Yes Concur with findings: Yes Comments/Additional Findings: transferred from detox to rehab admission as per protocol Inpatient Rehab Admission - Rehab Decision to Admit Inpatient rehab admission?: Yes - Initial Determination Are CD services needed?: Yes Free of communicable disease: Yes Not in need of hospitalization: Yes - Rehab Admission Criteria Previous failed treatment: Yes Poor recovery environment: Yes Comorbidities: Yes Lacks judgement: Yes Patient is meeting Inpatient Rehab admission criteria:: Yes
[2020-04-25] MEDS ORDERED: MAGNESIUM HYDROX 2400MG/30ML ORAL SUSPENSION 30 ML CUP PO PRN (12:47)
[2020-04-25] MEDS ORDERED: MAGNESIUM CITRATE 300 ML BOTTLE PO PRN (12:47)
[2020-04-25] MEDS ORDERED: guaiFENesin 200 MG/10 ML 10 ML UNIT-DOSE CUPS PO PRN (12:47)
[2020-04-25] MEDS ORDERED: MAG HYDROX/AL HYDROX/SIMETH 30 ML UNIT-DOSE CUP PO PRN (12:47)
[2020-04-25] MEDS ORDERED: P-EPHED 60MG/TRIPROLIDI 2.5MG TABLET PO PRN (12:47)
[2020-04-25] MEDS ORDERED: NICOTINE POLACRILEX 2 MG GUM BUC PRN (12:47)
[2020-04-25] MEDS ORDERED: LOPERAMIDE HCL 2 MG CAPSULE PO PRN (12:47)
[2020-04-25] MEDS ORDERED: ACETAMINOPHEN 325 MG TABLET (FP) PO PRN (12:47)
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
[2020-04-25] MEDS: IBUPROFEN 400 MG TABLET (FP) PO PRN ×2 (16:02→21:49)
--- NOTE | 2020-04-25 16:08 | PN ---
[facility] Progress Note Note: Pt is a 49 y/o male with a hx of BG-alcohol, crack/cocaine referred to rehab from [facility] after completing treatment. Pt is currently c/o pain to right gluteal muscle after Bicillin inj. while in detox. Subsequent doses to complete treatment will be on 04/29/20 and 05/06/20. PMHx:Colon bite-1994 PSx:amputation of multiple fingers of both hands due to colon bite PsychHx:Bipolar Disorder;Insomnia Vital Signs - 24 hr 04/25/20 04/25/20 04/25/20 11:51 11:52 15:00 Temperature 97.5 F L Pulse Rate 72 Respiratory 18 Rate Blood Pressure 114/59 L O2 Sat by Pulse 96 96 Oximetry (%) Alert o x 3 nad oob ambulating with steady gait Skin:no edema; skin intact; inj. area on right gluteal muscle covered with bandaid-no redness or swelling to area. (Area examined by engineering technical writer and nurse Luba Garrison) Extremities:no edema,skin intact; Amputation of both hands, total of seven fingers-left hand index,middle,4th and fifth fingers; right hand middle,4th and fifth fingers with deformed tip of index finger(s/p frostbite). New rehab pt s/p detox Continue rehab warm compress to right gluteal muscle motrin or tylenol prn
[2020-04-25] MEDS: MELATONIN 5 MG TABLETS PO SCH (21:48)
[2020-04-25] MEDS: hydrOXYzine PAMOATE 50 MG CAPSULE (FP) PO PRN (21:49)
[2020-04-25] MEDS: QUEtiapine FUMARATE 100 MG TABLET (FP) PO SCH (21:49)
[2020-04-25] MEDS: THIAMINE HCL 100 MG TABLET (FP) PO SCH (21:50)
[2020-04-26] MEDS: SERTRALINE HCL 50 MG TABLET (FP) PO SCH (10:14)
[2020-04-26] MEDS: PRENATAL VITAMINS W/ FOLIC ACID TABLET (FP) PO SCH (10:14)
[2020-04-26] MEDS: hydrOXYzine PAMOATE 50 MG CAPSULE (FP) PO PRN (10:14)
[2020-04-26] MEDS: NICOTINE 14 MG/24 HOURS TOPICAL PATCH TD SCH (10:14)
[2020-04-26] MEDS: IBUPROFEN 400 MG TABLET (FP) PO PRN (12:48)
--- NOTE | 2020-04-26 15:41 | PN ---
[facility] Progress Note Note: pt is transferred to [facility] today from [address] [place] [address] per management request. Vital Signs - 24 hr 04/25/20 04/26/20 04/26/20 20:32 00:30 06:35 Temperature 97.1 F L Pulse Rate 78 Respiratory 18 18 Rate Blood Pressure 120/73 O2 Sat by Pulse 96 98 Oximetry (%) 04/26/20 04/26/20 14:34 15:35 Temperature 98.8 F Pulse Rate 81 Respiratory 18 Rate Blood Pressure 126/71 O2 Sat by Pulse 95 Oximetry (%) Alert o x 3 nad oob ambulating with steady gait Rehab pt Cont Rehab on [facility]
[2020-04-26] MEDS: THIAMINE HCL 100 MG TABLET (FP) PO SCH (21:25)
[2020-04-26] MEDS: QUEtiapine FUMARATE 100 MG TABLET (FP) PO SCH (21:25)
[2020-04-26] MEDS: MELATONIN 5 MG TABLETS PO SCH (21:25)
[2020-04-27] MEDS: NICOTINE 14 MG/24 HOURS TOPICAL PATCH TD SCH (09:37)
[2020-04-27] MEDS: SERTRALINE HCL 50 MG TABLET (FP) PO SCH (09:37)
[2020-04-27] MEDS: PRENATAL VITAMINS W/ FOLIC ACID TABLET (FP) PO SCH (09:37)
[2020-04-27] MEDS: IBUPROFEN 400 MG TABLET (FP) PO PRN (09:38)
[2020-04-27] MEDS: hydrOXYzine PAMOATE 50 MG CAPSULE (FP) PO PRN (09:39)
[2020-04-27] MEDS: THIAMINE HCL 100 MG TABLET (FP) PO SCH (21:47)
[2020-04-27] MEDS: QUEtiapine FUMARATE 100 MG TABLET (FP) PO SCH (21:47)
[2020-04-27] MEDS: MELATONIN 5 MG TABLETS PO SCH (21:47)
[2020-04-28] MEDS: SERTRALINE HCL 50 MG TABLET (FP) PO SCH (10:20)
[2020-04-28] MEDS: NICOTINE 14 MG/24 HOURS TOPICAL PATCH TD SCH (10:20)
[2020-04-28] MEDS: hydrOXYzine PAMOATE 50 MG CAPSULE (FP) PO PRN (10:20)
[2020-04-28] MEDS: PRENATAL VITAMINS W/ FOLIC ACID TABLET (FP) PO SCH (10:20)
[2020-04-28] MEDS: THIAMINE HCL 100 MG TABLET (FP) PO SCH (21:43)
[2020-04-28] MEDS: QUEtiapine FUMARATE 100 MG TABLET (FP) PO SCH (21:43)
[2020-04-28] MEDS: MELATONIN 5 MG TABLETS PO SCH (21:43)
[2020-04-29] MEDS: SERTRALINE HCL 50 MG TABLET (FP) PO SCH (09:55)
[2020-04-29] MEDS: hydrOXYzine PAMOATE 50 MG CAPSULE (FP) PO PRN (09:55)
[2020-04-29] MEDS: NICOTINE 14 MG/24 HOURS TOPICAL PATCH TD SCH (09:55)
[2020-04-29] MEDS: PRENATAL VITAMINS W/ FOLIC ACID TABLET (FP) PO SCH (09:56)
[2020-04-29] MEDS ORDERED: PENICILLIN G BENZATHINE 2,400,000 UNIT/4 ML PFS IM ONE (10:00)
[2020-04-29] MEDS: IBUPROFEN 400 MG TABLET (FP) PO PRN (15:38)
[2020-04-29] MEDS: THIAMINE HCL 100 MG TABLET (FP) PO SCH (21:41)
[2020-04-29] MEDS: MELATONIN 5 MG TABLETS PO SCH (21:41)
[2020-04-29] MEDS: QUEtiapine FUMARATE 100 MG TABLET (FP) PO SCH (21:41)
[2020-04-30] MEDS: IBUPROFEN 400 MG TABLET (FP) PO PRN (08:48)
[2020-04-30] MEDS: hydrOXYzine PAMOATE 50 MG CAPSULE (FP) PO PRN (10:33)
[2020-04-30] MEDS: NICOTINE 14 MG/24 HOURS TOPICAL PATCH TD SCH (10:33)
[2020-04-30] MEDS: SERTRALINE HCL 50 MG TABLET (FP) PO SCH (10:34)
[2020-04-30] MEDS: PRENATAL VITAMINS W/ FOLIC ACID TABLET (FP) PO SCH (10:34)
[2020-04-30] MEDS: THIAMINE HCL 100 MG TABLET (FP) PO SCH (21:57)
[2020-04-30] MEDS: QUEtiapine FUMARATE 100 MG TABLET (FP) PO SCH (21:57)
[2020-04-30] MEDS: MELATONIN 5 MG TABLETS PO SCH (21:57)
[2020-05-01] MEDS ORDERED: MASKS NR ONE (06:28)
[2020-05-01] MEDS: hydrOXYzine PAMOATE 50 MG CAPSULE (FP) PO PRN (10:18)
[2020-05-01] MEDS: NICOTINE 14 MG/24 HOURS TOPICAL PATCH TD SCH (10:18)
[2020-05-01] MEDS: IBUPROFEN 400 MG TABLET (FP) PO PRN (10:18)
[2020-05-01] MEDS: PRENATAL VITAMINS W/ FOLIC ACID TABLET (FP) PO SCH (10:18)
[2020-05-01] MEDS: SERTRALINE HCL 50 MG TABLET (FP) PO SCH (10:18)
[2020-05-01] MEDS: MELATONIN 5 MG TABLETS PO SCH (21:36)
[2020-05-01] MEDS: THIAMINE HCL 100 MG TABLET (FP) PO SCH (21:36)
[2020-05-01] MEDS: QUEtiapine FUMARATE 100 MG TABLET (FP) PO SCH (21:36)
[2020-05-02] MEDS: IBUPROFEN 400 MG TABLET (FP) PO PRN (10:22)
[2020-05-02] MEDS: NICOTINE 14 MG/24 HOURS TOPICAL PATCH TD SCH (10:22)
[2020-05-02] MEDS: PRENATAL VITAMINS W/ FOLIC ACID TABLET (FP) PO SCH (10:22)
[2020-05-02] MEDS: SERTRALINE HCL 50 MG TABLET (FP) PO SCH (10:22)
[2020-05-02] MEDS: THIAMINE HCL 100 MG TABLET (FP) PO SCH (21:15)
[2020-05-02] MEDS: QUEtiapine FUMARATE 100 MG TABLET (FP) PO SCH (21:15)
[2020-05-02] MEDS: MELATONIN 5 MG TABLETS PO SCH (21:15)
[2020-05-03] MEDS: PRENATAL VITAMINS W/ FOLIC ACID TABLET (FP) PO SCH (10:15)
[2020-05-03] MEDS: NICOTINE 14 MG/24 HOURS TOPICAL PATCH TD SCH (10:15)
[2020-05-03] MEDS: hydrOXYzine PAMOATE 50 MG CAPSULE (FP) PO PRN (10:15)
[2020-05-03] MEDS: SERTRALINE HCL 50 MG TABLET (FP) PO SCH (10:15)
[2020-05-03] MEDS: QUEtiapine FUMARATE 100 MG TABLET (FP) PO SCH (21:51)
[2020-05-03] MEDS: THIAMINE HCL 100 MG TABLET (FP) PO SCH (21:51)
[2020-05-03] MEDS: MELATONIN 5 MG TABLETS PO SCH (21:51)
[2020-05-04] MEDS: PRENATAL VITAMINS W/ FOLIC ACID TABLET (FP) PO SCH (10:07)
[2020-05-04] MEDS: SERTRALINE HCL 50 MG TABLET (FP) PO SCH (10:07)
[2020-05-04] MEDS: NICOTINE 14 MG/24 HOURS TOPICAL PATCH TD SCH (10:07)
[2020-05-04] MEDS: QUEtiapine FUMARATE 100 MG TABLET (FP) PO SCH (21:32)
[2020-05-04] MEDS: MELATONIN 5 MG TABLETS PO SCH (21:32)
[2020-05-04] MEDS: THIAMINE HCL 100 MG TABLET (FP) PO SCH (21:32)
[2020-05-05] MEDS: NICOTINE 14 MG/24 HOURS TOPICAL PATCH TD SCH (10:02)
[2020-05-05] MEDS: SERTRALINE HCL 50 MG TABLET (FP) PO SCH (10:02)
[2020-05-05] MEDS: PRENATAL VITAMINS W/ FOLIC ACID TABLET (FP) PO SCH (10:02)
[2020-05-05] MEDS: QUEtiapine FUMARATE 100 MG TABLET (FP) PO SCH (21:45)
[2020-05-05] MEDS: THIAMINE HCL 100 MG TABLET (FP) PO SCH (21:45)
[2020-05-05] MEDS: hydrOXYzine PAMOATE 50 MG CAPSULE (FP) PO PRN (21:45)
[2020-05-05] MEDS: MELATONIN 5 MG TABLETS PO SCH (21:45)
[2020-05-06] MEDS ORDERED: PENICILLIN G BENZATHINE 2,400,000 UNIT/4 ML PFS IM ONE (10:00)
[2020-05-06] MEDS: hydrOXYzine PAMOATE 50 MG CAPSULE (FP) PO PRN (10:15)
[2020-05-06] MEDS: PRENATAL VITAMINS W/ FOLIC ACID TABLET (FP) PO SCH (10:15)
[2020-05-06] MEDS: SERTRALINE HCL 50 MG TABLET (FP) PO SCH (10:15)
[2020-05-06] MEDS: NICOTINE 14 MG/24 HOURS TOPICAL PATCH TD SCH (10:16)
[2020-05-06] MEDS: IBUPROFEN 400 MG TABLET (FP) PO PRN (14:02)
[2020-05-06] MEDS: MELATONIN 5 MG TABLETS PO SCH (21:15)
[2020-05-06] MEDS: THIAMINE HCL 100 MG TABLET (FP) PO SCH (21:15)
[2020-05-06] MEDS: QUEtiapine FUMARATE 100 MG TABLET (FP) PO SCH (21:16)
[2020-05-07] MEDS: NICOTINE 14 MG/24 HOURS TOPICAL PATCH TD SCH (09:55)
[2020-05-07] MEDS: PRENATAL VITAMINS W/ FOLIC ACID TABLET (FP) PO SCH (09:55)
[2020-05-07] MEDS: SERTRALINE HCL 50 MG TABLET (FP) PO SCH (09:55)
[2020-05-07] MEDS: MELATONIN 5 MG TABLETS PO SCH (21:52)
[2020-05-07] MEDS: QUEtiapine FUMARATE 100 MG TABLET (FP) PO SCH (21:52)
[2020-05-07] MEDS: THIAMINE HCL 100 MG TABLET (FP) PO SCH (21:52)
[2020-05-08] MEDS: PRENATAL VITAMINS W/ FOLIC ACID TABLET (FP) PO SCH (09:55)
[2020-05-08] MEDS: NICOTINE 14 MG/24 HOURS TOPICAL PATCH TD SCH (09:55)
[2020-05-08] MEDS: SERTRALINE HCL 50 MG TABLET (FP) PO SCH (09:56)
[2020-05-08] MEDS: IBUPROFEN 400 MG TABLET (FP) PO PRN ×2 (09:56→21:25)
[2020-05-08] MEDS: THIAMINE HCL 100 MG TABLET (FP) PO SCH (21:25)
[2020-05-08] MEDS: QUEtiapine FUMARATE 100 MG TABLET (FP) PO SCH (21:25)
[2020-05-08] MEDS: MELATONIN 5 MG TABLETS PO SCH (21:25)
[2020-05-09] MEDS: NICOTINE 14 MG/24 HOURS TOPICAL PATCH TD SCH (11:29)
[2020-05-09] MEDS: hydrOXYzine PAMOATE 50 MG CAPSULE (FP) PO PRN ×2 (11:29→22:29)
[2020-05-09] MEDS: IBUPROFEN 400 MG TABLET (FP) PO PRN ×2 (11:29→22:29)
[2020-05-09] MEDS: SERTRALINE HCL 50 MG TABLET (FP) PO SCH (11:29)
[2020-05-09] MEDS: PRENATAL VITAMINS W/ FOLIC ACID TABLET (FP) PO SCH (11:29)
[2020-05-09] MEDS: QUEtiapine FUMARATE 100 MG TABLET (FP) PO SCH (22:29)
[2020-05-09] MEDS: MELATONIN 5 MG TABLETS PO SCH (22:29)
[2020-05-09] MEDS: THIAMINE HCL 100 MG TABLET (FP) PO SCH (22:29)
--- NOTE | 2020-05-10 08:08 | PN ---
[facility] Progress Note Note: Patient is scheduled for discharge tomorrow. Scripts for 30 days supply of medications(Zoloft 100 mg/day, Seroquel 100 mg/hs) will be electronically transmitted to [facility] [place] [address]
--- NOTE | 2020-05-10 10:00 | DS ---
[facility] Rehab Discharge Summary - [facility] Rehab Discharge Summary Admission Date: 04/25/20 Discharge Date: 05/10/20 - History Present History: Alcohol dependence, Cocaine dependence Pertinent Past History: Mr. Adrian is a 49 yo man who presents to [facility] stating " I have to get my life together". He is requesting admission for alcohol and crack cocaine use disorder. He was last in detox between Sep 24 and Oct 07, 2019. He completed detox and then rehab. He relapsed one week ago due to his sister's with COVID. PMH: none Legal: none PSH: 7 finger amputated 1994 frostbite Psych: Bipolar, depression, no meds SoC: homeless x 10years, no longer in [facility] Substance use disorder Alcohol: 5 liters malt, 2 liters Rum, first use age 14y, last use 04/20/20. No seizures. Has had blackouts in 2019. 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 Neck: supple Cardiology: S1, S2 Abdominal: Yes: Non Tender, Flat, Soft, Decreased BS Musculoskeletal: full weight bearing, full ROM, steady gait Extremities: Yes: Amputation (left hand index, 2nd, 3rd and 5th fingers. Right 2nd, 3rd, & 5th fingers) Neuro: No cognitive deficits noted. - Treatment Discharge Condition: Outpatient referral accepted (Patient will go to [facility] for aftercare. Medically stable for discharge.) Hospital Course: Patient attended groups, had 1:1 with his counselor, was seen by the psychiatric service. He had no acute or urgent medical issues while in rehab. He was adherent to his medical regimen and treatment plan. - Medication Discharge Medications: Ambulatory Orders Quetiapine Fumarate [Seroquel -] 100 mg PO HS #30 tablet 05/10/20 Sertraline HCl [Zoloft] 100 mg PO DAILY #30 tablet 05/10/20 - Medication-Assisted Treatment (MAT) Medication-Assisted Treatment (MAT): No - Discharge Instructions Diet, activity, other medical instructions: Diet: as tolerated Activity: as tolerated Other medical instructions: Please follow up with aftercare referral.
[2020-05-10] MEDS: PRENATAL VITAMINS W/ FOLIC ACID TABLET (FP) PO SCH (10:33)
[2020-05-10] MEDS: SERTRALINE HCL 50 MG TABLET (FP) PO SCH (10:33)
[2020-05-10] MEDS: NICOTINE 14 MG/24 HOURS TOPICAL PATCH TD SCH (10:34)
[2020-05-10] MEDS: IBUPROFEN 400 MG TABLET (FP) PO PRN ×2 (10:34→21:17)
[2020-05-10] MEDS: QUEtiapine FUMARATE 100 MG TABLET (FP) PO SCH (21:17)
[2020-05-10] MEDS: MELATONIN 5 MG TABLETS PO SCH (21:17)
[2020-05-10] MEDS: THIAMINE HCL 100 MG TABLET (FP) PO SCH (21:17)
[2020-05-11 08:25] VITALS: BP 122/77; PULSE 81; TEMP 97.3
== END 2020-05-11 08:55 | disposition home or self-care (01) | DRG 772 ==
LOC: YASAS 11:40 → Y5N 11:41 → Y3W 04-26 15:19
PROVIDERS: ADMIT Allergy & Immunology; ATTEND Allergy & Immunology
PROC: HZ42ZZZ Group Counseling for Substance Abuse Treatment, Cognitive-Behavioral (ICD-10-PCS; principal; 2020-04-25)
DX: F10.20 Alcohol dependence, uncomplicated (principal); F14.20 Cocaine dependence, uncomplicated; F17.210 Nicotine dependence, cigarettes, uncomplicated; F31.9 Bipolar disorder, unspecified; F19.282 Other psychoactive substance dependence with psychoactive substance-induced sleep disorder; Z20.2 Contact with and (suspected) exposure to infections with a predominantly sexual mode of transmission; Z89.022 Acquired absence of left finger(s); Z89.021 Acquired absence of right finger(s); X31.XXXS Exposure to excessive natural cold, sequela; Z56.0 Unemployment, unspecified; Z59.0 Homelessness

== ENCOUNTER 2021-06-12 13:44 | Inpatient (IN) | payer OTHER ==
[2021-06-12 15:16] VITALS: BMI 28.0
[2021-06-12] MEDS ORDERED: BISMUTH SUBSALICYLATE 524 MG/30 ML PO PRN (16:02)
[2021-06-12] MEDS ORDERED: MAG HYDROX/AL HYDROX/SIMETH 30 ML UNIT-DOSE CUP PO PRN (16:02)
[2021-06-12] MEDS ORDERED: IBUPROFEN 400 MG TABLET (FP) PO PRN (16:02)
[2021-06-12] MEDS ORDERED: NALOXONE (NARCAN) HCL 4 MG/0.1 ML SPRAY NS PRN (16:02)
[2021-06-12] MEDS ORDERED: NALOXONE HCL 0.4 MG/ML VIAL IM PRN (16:02)
[2021-06-12] MEDS ORDERED: ONDANSETRON *ODT* 4 MG TABLET SL PRN (16:02)
[2021-06-12] MEDS ORDERED: MAGNESIUM HYDROX 2400MG/30ML ORAL SUSPENSION 30 ML CUP PO PRN (16:02)
[2021-06-12] MEDS ORDERED: ACETAMINOPHEN 325 MG TABLET (FP) PO PRN ×2 (16:02)
[2021-06-12] MEDS ORDERED: MENTHOL/PHENOL 1 EACH UD MM PRN (16:02)
[2021-06-12] MEDS ORDERED: METHOCARBAMOL 500 MG TABLET PO PRN (16:02)
[2021-06-12] MEDS ORDERED: MAGNESIUM CITRATE 300 ML BOTTLE PO PRN (16:02)
[2021-06-12] MEDS ORDERED: NICOTINE POLACRILEX 2 MG GUM BUC PRN (16:02)
[2021-06-12] MEDS ORDERED: diazePAM 5 MG TABLET PO PRN (16:06)
[2021-06-12] MEDS: hydrOXYzine PAMOATE 25 MG CAPSULE (FP) PO SCH ×2 (17:48→22:17)
[2021-06-12] MEDS: diazePAM 5 MG TABLET PO SCH ×2 (17:49→22:17)
[2021-06-12] MEDS: THIAMINE HCL 100 MG TABLET (FP) PO SCH (22:17)
[2021-06-12] MEDS: MELATONIN 5 MG TABLETS PO SCH (22:17)
[2021-06-13] MEDS: diazePAM 5 MG TABLET PO SCH ×4 (05:51→22:26)
[2021-06-13] MEDS: hydrOXYzine PAMOATE 25 MG CAPSULE (FP) PO SCH ×5 (05:51→22:25)
[2021-06-13] MEDS: NICOTINE 14 MG/24 HOURS TOPICAL PATCH TD SCH (10:07)
[2021-06-13] MEDS: PRENATAL VITAMINS W/ FOLIC ACID TABLET (FP) PO SCH (10:09)
[2021-06-13 10:25] LABS: HEMATOCRIT 34.9 % (35.4-49); HEMOGLOBIN 12.2 GM/dL (11.7-16.9); MCH 29.1 pg (25.7-33.7); MCHC 34.9 g/dl (32.0-35.9); MEAN CELL VOLUME 83.3 fl (80-96); MEAN PLT VOLUME 7.5 fl (7.5-11.1); PLATELET COUNT 396 10^3/uL (134-434); RBC 4.19 M/mm3 (4.00-5.60); RDW 14.3 % (11.9-15.9); WHITE BLOOD COUNT 12.6 K/mm3 (4.0-10.0)
[2021-06-13 11:19] LABS: ALBUMIN 3.6 g/dl (3.4-5.0); BILIRUBIN,TOTAL 0.7 mg/dL (0.2-1); BLOOD UREA NITROGEN 17.5 mg/dL (7-18); CALCIUM 8.6 mg/dL (8.5-10.1); CREATININE 1.2 mg/dL (0.55-1.3)
[2021-06-13 11:20] LABS: HIV INTERPRETATION NEGATIVE (NEGATIVE)
[2021-06-13] MEDS: THIAMINE HCL 100 MG TABLET (FP) PO SCH (22:25)
[2021-06-13] MEDS: MELATONIN 5 MG TABLETS PO SCH (22:25)
[2021-06-13] MEDS: QUEtiapine FUMARATE 100 MG TABLET (FP) PO SCH (22:26)
[2021-06-14] MEDS: hydrOXYzine PAMOATE 25 MG CAPSULE (FP) PO SCH ×5 (06:02→22:01)
[2021-06-14] MEDS: diazePAM 5 MG TABLET PO SCH ×3 (06:03→22:01)
[2021-06-14] MEDS: PRENATAL VITAMINS W/ FOLIC ACID TABLET (FP) PO SCH (10:10)
[2021-06-14] MEDS: NICOTINE 14 MG/24 HOURS TOPICAL PATCH TD SCH (10:10)
[2021-06-14] MEDS: SERTRALINE HCL 50 MG TABLET (FP) PO SCH (10:13)
[2021-06-14] MEDS: QUEtiapine FUMARATE 100 MG TABLET (FP) PO SCH (22:01)
[2021-06-14] MEDS: MELATONIN 5 MG TABLETS PO SCH (22:02)
[2021-06-14] MEDS: THIAMINE HCL 100 MG TABLET (FP) PO SCH (22:02)
[2021-06-14 22:34] LABS: URINE APPEARANCE CLOUDY; URINE BILIRUBIN NEGATIVE (NEGATIVE); URINE COLOR YELLOW; URINE GLUCOSE (UA) NEGATIVE (NEGATIVE); URINE KETONE NEGATIVE (NEGATIVE); URINE LEUK ESTERASE NEGATIVE (NEGATIVE); URINE NITRITE NEGATIVE (NEGATIVE); URINE PROTEIN NEGATIVE (NEGATIVE); URINE UROBILINOGEN 0.2 mg/dL (0.2-1.0)
[2021-06-15] MEDS: diazePAM 5 MG TABLET PO SCH ×2 (05:35→17:31)
[2021-06-15] MEDS: hydrOXYzine PAMOATE 25 MG CAPSULE (FP) PO SCH ×5 (05:35→22:40)
[2021-06-15 10:06] LABS: HEMATOCRIT 34.5 % (35.4-49); HEMOGLOBIN 11.7 GM/dL (11.7-16.9); MCH 28.6 pg (25.7-33.7); MCHC 33.8 g/dl (32.0-35.9); MEAN CELL VOLUME 84.6 fl (80-96); MEAN PLT VOLUME 7.5 fl (7.5-11.1); PLATELET COUNT 407 10^3/uL (134-434); RBC 4.08 M/mm3 (4.00-5.60); RDW 14.2 % (11.9-15.9); WHITE BLOOD COUNT 12.6 K/mm3 (4.0-10.0)
[2021-06-15] MEDS: SERTRALINE HCL 50 MG TABLET (FP) PO SCH (10:09)
[2021-06-15] MEDS: PRENATAL VITAMINS W/ FOLIC ACID TABLET (FP) PO SCH (10:09)
[2021-06-15] MEDS: NICOTINE 14 MG/24 HOURS TOPICAL PATCH TD SCH (10:10)
[2021-06-15] MEDS ORDERED: QUEtiapine FUMARATE 200 MG TABLET PO SCH (22:00)
[2021-06-15] MEDS: THIAMINE HCL 100 MG TABLET (FP) PO SCH (22:40)
[2021-06-16] MEDS: hydrOXYzine PAMOATE 25 MG CAPSULE (FP) PO SCH ×2 (05:20→10:17)
[2021-06-16] MEDS ORDERED: diazePAM 5 MG TABLET PO ONE (06:00)
[2021-06-16 09:33] VITALS: BP 116/68; PULSE 76; TEMP 97.1
[2021-06-16] MEDS ORDERED: SERTRALINE HCL 50 MG TABLET (FP) PO SCH (10:00)
[2021-06-16] MEDS: NICOTINE 14 MG/24 HOURS TOPICAL PATCH TD SCH (10:17)
[2021-06-16] MEDS: PRENATAL VITAMINS W/ FOLIC ACID TABLET (FP) PO SCH (10:17)
== END 2021-06-16 09:55 | disposition home or self-care (01) | DRG 774 ==
LOC: YASAS 13:44 → Y3N 16:01
PROVIDERS: ADMIT Allergy & Immunology; ATTEND Allergy & Immunology
PROC: HZ2ZZZZ Detoxification Services for Substance Abuse Treatment (ICD-10-PCS; principal; 2021-06-12)
DX: F10.230 Alcohol dependence with withdrawal, uncomplicated (principal); F14.20 Cocaine dependence, uncomplicated; F17.210 Nicotine dependence, cigarettes, uncomplicated; F19.24 Other psychoactive substance dependence with psychoactive substance-induced mood disorder; F19.282 Other psychoactive substance dependence with psychoactive substance-induced sleep disorder; F31.9 Bipolar disorder, unspecified; G47.00 Insomnia, unspecified; Z89.022 Acquired absence of left finger(s); Z89.021 Acquired absence of right finger(s); Z86.19 Personal history of other infectious and parasitic diseases; Z56.0 Unemployment, unspecified
CPT/HCPCS: 36415; 71046-TC-FY; 80053; 81003; 85027; 86593; 86780; 87389; 93005; 93010; C9803; U0003; U0005

== ENCOUNTER 2023-03-18 15:50 | Inpatient (IN) | payer OTHER ==
[2023-03-18 16:47] VITALS: BMI 24.5
[2023-03-18] MEDS ORDERED: BENZONATATE 200 MG CAPSULE PO PRN (17:09)
[2023-03-18] MEDS ORDERED: POLYETHYLENE GLYCOL (HEALTHYLAX) 3350 17 GM PACKET PO PRN (17:09)
[2023-03-18] MEDS ORDERED: BISMUTH SUBSALICYLATE 524 MG/30 ML PO PRN (17:09)
[2023-03-18] MEDS ORDERED: BENZOCAINE/MENTHOL (CHLORASEPTIC ) LOZENGE MM PRN (17:09)
[2023-03-18] MEDS ORDERED: IBUPROFEN 400 MG TABLET (FP) PO PRN (17:09)
[2023-03-18] MEDS ORDERED: ONDANSETRON *ODT* 4 MG TABLET SL PRN (17:09)
[2023-03-18] MEDS ORDERED: NALOXONE HCL 0.4 MG/ML VIAL IM PRN (17:09)
[2023-03-18] MEDS ORDERED: DICYCLOMINE HCL 10 MG CAPSULE PO PRN (17:09)
[2023-03-18] MEDS ORDERED: guaiFENesin 600 MG TABLET.ER (FP) PO PRN (17:09)
[2023-03-18] MEDS ORDERED: NALOXONE HCL (KLOXXADO) 8 MG SPRAY NS PRN (17:09)
[2023-03-18] MEDS ORDERED: LOPERAMIDE HCL 2 MG CAPSULE PO PRN (17:09)
[2023-03-18] MEDS ORDERED: MAG HYDROX/AL HYDROX/SIMETH 30 ML UNIT-DOSE CUP PO PRN (17:09)
[2023-03-18] MEDS ORDERED: ACETAMINOPHEN 325 MG TABLET (FP) PO PRN (17:09)
[2023-03-18] MEDS ORDERED: MAGNESIUM HYDROX 2400MG/30ML ORAL SUSPENSION 30 ML CUP PO PRN (17:09)
[2023-03-18] MEDS ORDERED: IBUPROFEN 600 MG TABLET (FP) PO ONE (17:53)
[2023-03-18] MEDS: IBUPROFEN 600 MG TABLET (FP) PO PRN (17:56)
[2023-03-18] MEDS: VITAMINS A AND D TOPICAL OINTMENT 60 GM TUBE TP SCH (19:58)
[2023-03-18] MEDS ORDERED: TUBERCULIN PPD 5 TU/0.1ML VIAL ID ONE (22:35)
[2023-03-18] MEDS: THIAMINE HCL 100 MG TABLET (FP) PO SCH (22:38)
[2023-03-18] MEDS: MELATONIN 5 MG TABLETS PO SCH (22:39)
[2023-03-19] MEDS: VITAMINS A AND D TOPICAL OINTMENT 60 GM TUBE TP SCH ×5 (00:24→23:55)
[2023-03-19] MEDS: IBUPROFEN 600 MG TABLET (FP) PO PRN ×2 (07:01→20:57)
[2023-03-19] MEDS: METHOCARBAMOL 500 MG TABLET PO PRN ×2 (07:02→20:58)
[2023-03-19] MEDS: PRENATAL VITAMINS W/ FOLIC ACID TABLET (FP) PO SCH (10:08)
[2023-03-19] MEDS: NICOTINE 7 MG/24 HOURS TOPICAL PATCH TD SCH (10:09)
[2023-03-19 12:29] LABS: HEMATOCRIT 38.5 % (35.4-49); HEMOGLOBIN 13.2 GM/dL (11.7-16.9); MCHC 34.2 g/dl (32.0-35.9); MEAN CELL VOLUME 81.8 fl (80-96); MEAN PLT VOLUME 8.2 fl (7.5-11.1); PLATELET COUNT 356 10^3/uL (134-434); RBC 4.71 M/mm3 (4.00-5.60); RDW 13.9 % (11.9-15.9); WHITE BLOOD COUNT 13.1 K/mm3 (4.0-10.0)
[2023-03-19 12:47] LABS: POTASSIUM 4.1 mmol/L (3.5-5.1)
[2023-03-19 13:13] LABS: ALBUMIN 3.7 g/dl (3.4-5.0); BLOOD UREA NITROGEN 20.5 mg/dL (7-18); CALCIUM 9.2 mg/dL (8.5-10.1)
[2023-03-19 13:16] LABS: CREATININE 1.1 mg/dL (0.55-1.3)
[2023-03-19 13:18] LABS: BILIRUBIN,TOTAL 0.5 mg/dL (0.2-1); TOT PROT 6.9 g/dl (6.4-8.2)
[2023-03-19] MEDS: hydrOXYzine PAMOATE 25 MG CAPSULE (FP) PO PRN (20:58)
[2023-03-19] MEDS: MELATONIN 5 MG TABLETS PO SCH (20:59)
[2023-03-19] MEDS: THIAMINE HCL 100 MG TABLET (FP) PO SCH (20:59)
[2023-03-20] MEDS: IBUPROFEN 600 MG TABLET (FP) PO PRN ×3 (05:57→20:53)
[2023-03-20] MEDS: METHOCARBAMOL 500 MG TABLET PO PRN ×2 (05:57→14:43)
[2023-03-20] MEDS: VITAMINS A AND D TOPICAL OINTMENT 60 GM TUBE TP SCH ×3 (06:02→18:57)
[2023-03-20] MEDS: NICOTINE 7 MG/24 HOURS TOPICAL PATCH TD SCH (10:37)
[2023-03-20] MEDS: PRENATAL VITAMINS W/ FOLIC ACID TABLET (FP) PO SCH (10:37)
[2023-03-20 17:27] LABS: HEMATOCRIT 34.7 % (35.4-49); HEMOGLOBIN 11.9 GM/dL (11.7-16.9); MCH 28.1 pg (25.7-33.7); MCHC 34.1 g/dl (32.0-35.9); MEAN CELL VOLUME 82.3 fl (80-96); MEAN PLT VOLUME 7.5 fl (7.5-11.1); PLATELET COUNT 382 10^3/uL (134-434); RBC 4.22 M/mm3 (4.00-5.60); RDW 14.1 % (11.9-15.9); WHITE BLOOD COUNT 10.5 K/mm3 (4.0-10.0)
[2023-03-20 17:40] VITALS: TEMP 97.7
[2023-03-20] MEDS: hydrOXYzine PAMOATE 25 MG CAPSULE (FP) PO PRN (20:53)
[2023-03-20] MEDS: MELATONIN 5 MG TABLETS PO SCH (21:01)
[2023-03-20] MEDS: THIAMINE HCL 100 MG TABLET (FP) PO SCH (21:01)
[2023-03-21] MEDS: METHOCARBAMOL 500 MG TABLET PO PRN ×2 (05:59→16:07)
[2023-03-21] MEDS: IBUPROFEN 600 MG TABLET (FP) PO PRN ×2 (05:59→16:07)
[2023-03-21] MEDS: VITAMINS A AND D TOPICAL OINTMENT 60 GM TUBE TP SCH ×4 (06:01→17:32)
[2023-03-21 09:29] VITALS: PULSE 75
[2023-03-21] MEDS: PRENATAL VITAMINS W/ FOLIC ACID TABLET (FP) PO SCH (10:29)
[2023-03-21] MEDS: NICOTINE 7 MG/24 HOURS TOPICAL PATCH TD SCH (10:29)
[2023-03-21 13:07] VITALS: BP 145/98; RESP 18
[2023-03-21] MEDS ORDERED: QUEtiapine FUMARATE 100 MG TABLET (FP) PO SCH (22:00)
== END 2023-03-21 15:30 | disposition other institution (70) | DRG 774 ==
LOC: YASAS 15:50 → Y3N 17:34
PROVIDERS: ADMIT Allergy & Immunology; ATTEND Surgery
PROC: HZ2ZZZZ Detoxification Services for Substance Abuse Treatment (ICD-10-PCS; principal; 2023-03-18)
DX: F10.20 Alcohol dependence, uncomplicated (principal); F14.20 Cocaine dependence, uncomplicated; F17.210 Nicotine dependence, cigarettes, uncomplicated; F10.282 Alcohol dependence with alcohol-induced sleep disorder; F19.24 Other psychoactive substance dependence with psychoactive substance-induced mood disorder; F32.A Depression, unspecified; Z86.19 Personal history of other infectious and parasitic diseases
CPT/HCPCS: 36415; 80053; 85027; 86593; 86780; C9803-CS; U0003; U0005

== ENCOUNTER 2023-03-21 17:45 | Inpatient (IN) | payer OTHER ==
[2023-03-21] MEDS ORDERED: MAG HYDROX/AL HYDROX/SIMETH 30 ML UNIT-DOSE CUP PO PRN (19:00)
[2023-03-21] MEDS ORDERED: guaiFENesin 600 MG TABLET.ER (FP) PO PRN (19:00)
[2023-03-21] MEDS ORDERED: BENZOCAINE/MENTHOL (CHLORASEPTIC ) LOZENGE MM PRN (19:00)
[2023-03-21] MEDS ORDERED: BENZONATATE 200 MG CAPSULE PO PRN (19:00)
[2023-03-21] MEDS ORDERED: MAGNESIUM HYDROX 2400MG/30ML ORAL SUSPENSION 30 ML CUP PO PRN (19:00)
[2023-03-21] MEDS ORDERED: AMMONIUM LACTATE 12% LOTION 225 GM BOTTLE TP PRN (19:00)
[2023-03-21] MEDS ORDERED: COLLOIDAL OATMEAL 1 BAR EACH TP PRN (19:00)
[2023-03-21] MEDS ORDERED: POLYETHYLENE GLYCOL (HEALTHYLAX) 3350 17 GM PACKET PO PRN (19:00)
[2023-03-21] MEDS ORDERED: LOPERAMIDE HCL 2 MG CAPSULE PO PRN (19:00)
[2023-03-21] MEDS ORDERED: P-EPHED 60MG/TRIPROLIDI 2.5MG TABLET PO PRN (19:00)
[2023-03-21 19:07] VITALS: RESP 18
[2023-03-21] MEDS: QUEtiapine FUMARATE 200 MG TABLET PO SCH (21:34)
[2023-03-21] MEDS: THIAMINE HCL 100 MG TABLET (FP) PO SCH (21:34)
[2023-03-21] MEDS: IBUPROFEN 600 MG TABLET (FP) PO PRN (21:34)
[2023-03-22] MEDS: PRENATAL VITAMINS W/ FOLIC ACID TABLET (FP) PO SCH (10:10)
[2023-03-22] MEDS: IBUPROFEN 600 MG TABLET (FP) PO PRN (10:13)
[2023-03-22] MEDS: THIAMINE HCL 100 MG TABLET (FP) PO SCH (21:10)
[2023-03-22] MEDS: ACETAMINOPHEN 325 MG TABLET (FP) PO PRN (21:10)
[2023-03-22] MEDS: QUEtiapine FUMARATE 200 MG TABLET PO SCH (21:10)
[2023-03-23] MEDS: PRENATAL VITAMINS W/ FOLIC ACID TABLET (FP) PO SCH (10:00)
[2023-03-23] MEDS: IBUPROFEN 600 MG TABLET (FP) PO PRN ×2 (10:01→21:33)
[2023-03-23] MEDS ORDERED: VITAMINS A AND D TOPICAL OINTMENT 60 GM TUBE TP PRN ×2 (10:53→11:23)
[2023-03-23] MEDS: NICOTINE 14 MG/24 HOURS TOPICAL PATCH TD SCH (11:56)
[2023-03-23] MEDS: THIAMINE HCL 100 MG TABLET (FP) PO SCH (21:33)
[2023-03-23] MEDS: MELATONIN 5 MG TABLETS PO PRN (21:33)
[2023-03-23] MEDS: QUEtiapine FUMARATE 200 MG TABLET PO SCH (21:33)
[2023-03-24] MEDS: NICOTINE 14 MG/24 HOURS TOPICAL PATCH TD SCH (10:07)
[2023-03-24] MEDS: PRENATAL VITAMINS W/ FOLIC ACID TABLET (FP) PO SCH (10:07)
[2023-03-24] MEDS: ACETAMINOPHEN 325 MG TABLET (FP) PO PRN (10:07)
[2023-03-24] MEDS: MELATONIN 5 MG TABLETS PO PRN (21:11)
[2023-03-24] MEDS: IBUPROFEN 400 MG TABLET (FP) PO PRN (21:11)
[2023-03-24] MEDS: THIAMINE HCL 100 MG TABLET (FP) PO SCH (21:11)
[2023-03-24] MEDS: QUEtiapine FUMARATE 200 MG TABLET PO SCH (21:11)
[2023-03-25] MEDS: NICOTINE 14 MG/24 HOURS TOPICAL PATCH TD SCH (10:07)
[2023-03-25] MEDS: PRENATAL VITAMINS W/ FOLIC ACID TABLET (FP) PO SCH (10:07)
[2023-03-25] MEDS: THIAMINE HCL 100 MG TABLET (FP) PO SCH (21:27)
[2023-03-25] MEDS: IBUPROFEN 600 MG TABLET (FP) PO PRN (21:27)
[2023-03-25] MEDS: MELATONIN 5 MG TABLETS PO PRN (21:28)
[2023-03-25] MEDS: QUEtiapine FUMARATE 200 MG TABLET PO SCH (21:28)
[2023-03-26] MEDS: PRENATAL VITAMINS W/ FOLIC ACID TABLET (FP) PO SCH (10:13)
[2023-03-26] MEDS: NICOTINE 14 MG/24 HOURS TOPICAL PATCH TD SCH (10:13)
[2023-03-26] MEDS: IBUPROFEN 600 MG TABLET (FP) PO PRN ×2 (10:15→21:30)
[2023-03-26] MEDS: QUEtiapine FUMARATE 200 MG TABLET PO SCH (21:29)
[2023-03-26] MEDS: THIAMINE HCL 100 MG TABLET (FP) PO SCH (21:29)
[2023-03-27] MEDS: NICOTINE 14 MG/24 HOURS TOPICAL PATCH TD SCH (10:03)
[2023-03-27] MEDS: PRENATAL VITAMINS W/ FOLIC ACID TABLET (FP) PO SCH (10:03)
[2023-03-27] MEDS: IBUPROFEN 600 MG TABLET (FP) PO PRN ×2 (10:04→20:59)
[2023-03-27] MEDS: THIAMINE HCL 100 MG TABLET (FP) PO SCH (21:00)
[2023-03-27] MEDS: QUEtiapine FUMARATE 200 MG TABLET PO SCH (21:00)
[2023-03-27] MEDS: MELATONIN 5 MG TABLETS PO PRN (21:00)
[2023-03-28] MEDS: IBUPROFEN 600 MG TABLET (FP) PO PRN ×2 (10:28→21:09)
[2023-03-28] MEDS: PRENATAL VITAMINS W/ FOLIC ACID TABLET (FP) PO SCH (10:29)
[2023-03-28] MEDS: NICOTINE 14 MG/24 HOURS TOPICAL PATCH TD SCH (10:29)
[2023-03-28] MEDS: QUEtiapine FUMARATE 200 MG TABLET PO SCH (21:09)
[2023-03-28] MEDS: THIAMINE HCL 100 MG TABLET (FP) PO SCH (21:09)
[2023-03-29] MEDS: NICOTINE 14 MG/24 HOURS TOPICAL PATCH TD SCH (09:51)
[2023-03-29] MEDS: PRENATAL VITAMINS W/ FOLIC ACID TABLET (FP) PO SCH (09:51)
[2023-03-29] MEDS: IBUPROFEN 400 MG TABLET (FP) PO PRN (20:35)
[2023-03-29] MEDS: QUEtiapine FUMARATE 200 MG TABLET PO SCH (21:23)
[2023-03-29] MEDS: THIAMINE HCL 100 MG TABLET (FP) PO SCH (21:23)
[2023-03-30] MEDS: NICOTINE 14 MG/24 HOURS TOPICAL PATCH TD SCH (09:55)
[2023-03-30] MEDS: PRENATAL VITAMINS W/ FOLIC ACID TABLET (FP) PO SCH (09:55)
[2023-03-30] MEDS: QUEtiapine FUMARATE 200 MG TABLET PO SCH (21:08)
[2023-03-30] MEDS: IBUPROFEN 400 MG TABLET (FP) PO PRN (21:08)
[2023-03-30] MEDS: MELATONIN 5 MG TABLETS PO PRN (21:08)
[2023-03-30] MEDS: THIAMINE HCL 100 MG TABLET (FP) PO SCH (21:08)
[2023-03-31] MEDS: PRENATAL VITAMINS W/ FOLIC ACID TABLET (FP) PO SCH (10:57)
[2023-03-31] MEDS: NICOTINE 14 MG/24 HOURS TOPICAL PATCH TD SCH (10:57)
[2023-03-31] MEDS: QUEtiapine FUMARATE 200 MG TABLET PO SCH (21:07)
[2023-03-31] MEDS: THIAMINE HCL 100 MG TABLET (FP) PO SCH (21:07)
[2023-04-01 07:28] VITALS: BP 130/85; PULSE 99; TEMP 97.5
== END 2023-04-01 08:25 | disposition home or self-care (01) | DRG 772 ==
LOC: YASAS 17:45 → Y5N 17:46 → UNDOADMIN 17:46 → Y6N 17:46
PROVIDERS: ADMIT Allergy & Immunology; ATTEND Surgery
PROC: HZ42ZZZ Group Counseling for Substance Abuse Treatment, Cognitive-Behavioral (ICD-10-PCS; principal; 2023-03-21)
DX: F10.20 Alcohol dependence, uncomplicated (principal); F14.20 Cocaine dependence, uncomplicated; F17.210 Nicotine dependence, cigarettes, uncomplicated; F19.282 Other psychoactive substance dependence with psychoactive substance-induced sleep disorder; F31.9 Bipolar disorder, unspecified; F10.282 Alcohol dependence with alcohol-induced sleep disorder; Z89.022 Acquired absence of left finger(s); Z89.021 Acquired absence of right finger(s); Z86.19 Personal history of other infectious and parasitic diseases; Z59.01 Sheltered homelessness

== ENCOUNTER 2023-04-13 08:18 | Inpatient (IN) | payer OTHER ==
[2023-04-13 09:34] VITALS: BMI 24.2
[2023-04-13] MEDS ORDERED: POLYETHYLENE GLYCOL (HEALTHYLAX) 3350 17 GM PACKET PO PRN (10:43)
[2023-04-13] MEDS ORDERED: ONDANSETRON *ODT* 4 MG TABLET SL PRN (10:43)
[2023-04-13] MEDS ORDERED: NALOXONE HCL 0.4 MG/ML VIAL IM PRN (10:43)
[2023-04-13] MEDS ORDERED: METHOCARBAMOL 500 MG TABLET PO PRN (10:43)
[2023-04-13] MEDS ORDERED: BENZOCAINE/MENTHOL (CHLORASEPTIC ) LOZENGE MM PRN (10:43)
[2023-04-13] MEDS ORDERED: ACETAMINOPHEN 325 MG TABLET (FP) PO PRN (10:43)
[2023-04-13] MEDS ORDERED: guaiFENesin 600 MG TABLET.ER (FP) PO PRN (10:43)
[2023-04-13] MEDS ORDERED: MAG HYDROX/AL HYDROX/SIMETH 30 ML UNIT-DOSE CUP PO PRN (10:43)
[2023-04-13] MEDS ORDERED: LOPERAMIDE HCL 2 MG CAPSULE PO PRN (10:43)
[2023-04-13] MEDS ORDERED: DICYCLOMINE HCL 10 MG CAPSULE PO PRN (10:43)
[2023-04-13] MEDS ORDERED: IBUPROFEN 600 MG TABLET (FP) PO PRN (10:43)
[2023-04-13] MEDS ORDERED: BISMUTH SUBSALICYLATE 524 MG/30 ML PO PRN (10:43)
[2023-04-13] MEDS ORDERED: NALOXONE HCL (KLOXXADO) 8 MG SPRAY NS PRN (10:43)
[2023-04-13] MEDS ORDERED: IBUPROFEN 400 MG TABLET (FP) PO PRN (10:43)
[2023-04-13] MEDS ORDERED: NICOTINE 10 MG CARTRIDGE (INHALER) IH PRN (10:43)
[2023-04-13] MEDS ORDERED: MAGNESIUM HYDROX 2400MG/30ML ORAL SUSPENSION 30 ML CUP PO PRN (10:43)
[2023-04-13] MEDS ORDERED: BENZONATATE 200 MG CAPSULE PO PRN (10:43)
[2023-04-13] MEDS ORDERED: chlordiazePOXIDE HCL 25 MG CAPSULE PO PRN (10:43)
[2023-04-13] MEDS ORDERED: hydrOXYzine PAMOATE 25 MG CAPSULE (FP) PO PRN (10:43)
[2023-04-13] MEDS ORDERED: NICOTINE 21 MG/24 HOURS TOPICAL PATCH ONE (10:58)
[2023-04-13] MEDS: NICOTINE 21 MG/24 HOURS TOPICAL PATCH TD SCH (11:12)
[2023-04-13] MEDS: chlordiazePOXIDE HCL 25 MG CAPSULE PO SCH ×2 (17:34→22:36)
[2023-04-13] MEDS: THIAMINE HCL 100 MG TABLET (FP) PO SCH (22:34)
[2023-04-13] MEDS: MELATONIN 5 MG TABLETS PO SCH (22:34)
[2023-04-14] MEDS: chlordiazePOXIDE HCL 25 MG CAPSULE PO SCH ×4 (05:13→22:45)
[2023-04-14] MEDS: PRENATAL VITAMINS W/ FOLIC ACID TABLET (FP) PO SCH (10:18)
[2023-04-14] MEDS: NICOTINE 21 MG/24 HOURS TOPICAL PATCH TD SCH (10:18)
[2023-04-14 11:03] LABS: HEMATOCRIT 36.2 % (35.4-49); HEMOGLOBIN 12.5 GM/dL (11.7-16.9); MCH 28.3 pg (25.7-33.7); MCHC 34.5 g/dl (32.0-35.9); MEAN CELL VOLUME 81.9 fl (80-96); PLATELET COUNT 361 10^3/uL (134-434); RBC 4.41 M/mm3 (4.00-5.60); RDW 14.1 % (11.9-15.9); WHITE BLOOD COUNT 8.9 K/mm3 (4.0-10.0)
[2023-04-14 11:06] LABS: POTASSIUM 3.8 mmol/L (3.5-5.1)
[2023-04-14 11:10] LABS: BLOOD UREA NITROGEN 14.5 mg/dL (7-18)
[2023-04-14 11:11] LABS: ALBUMIN 3.3 g/dl (3.4-5.0)
[2023-04-14 11:13] LABS: CREATININE 0.9 mg/dL (0.55-1.3)
[2023-04-14 11:15] LABS: BILIRUBIN,TOTAL 0.4 mg/dL (0.2-1); TOT PROT 6.4 g/dl (6.4-8.2)
[2023-04-14] MEDS: QUEtiapine FUMARATE 100 MG TABLET (FP) PO SCH (22:45)
[2023-04-14] MEDS: MELATONIN 5 MG TABLETS PO SCH (22:45)
[2023-04-14] MEDS: THIAMINE HCL 100 MG TABLET (FP) PO SCH (22:45)
[2023-04-15] MEDS: chlordiazePOXIDE HCL 25 MG CAPSULE PO SCH ×4 (05:45→22:41)
[2023-04-15] MEDS: NICOTINE 21 MG/24 HOURS TOPICAL PATCH TD SCH (10:28)
[2023-04-15] MEDS: PRENATAL VITAMINS W/ FOLIC ACID TABLET (FP) PO SCH (10:28)
[2023-04-15] MEDS: THIAMINE HCL 100 MG TABLET (FP) PO SCH (21:56)
[2023-04-15] MEDS: MELATONIN 5 MG TABLETS PO SCH (21:56)
[2023-04-15] MEDS: QUEtiapine FUMARATE 100 MG TABLET (FP) PO SCH (21:56)
[2023-04-16] MEDS ORDERED: chlordiazePOXIDE HCL 10 MG CAPSULE PO PRN
[2023-04-16] MEDS: chlordiazePOXIDE HCL 10 MG CAPSULE PO SCH ×4 (06:00→22:22)
[2023-04-16] MEDS: PRENATAL VITAMINS W/ FOLIC ACID TABLET (FP) PO SCH (10:15)
[2023-04-16] MEDS: NICOTINE 21 MG/24 HOURS TOPICAL PATCH TD SCH (10:15)
[2023-04-16] MEDS: QUEtiapine FUMARATE 100 MG TABLET (FP) PO SCH (22:21)
[2023-04-16] MEDS: THIAMINE HCL 100 MG TABLET (FP) PO SCH (22:21)
[2023-04-16] MEDS: MELATONIN 5 MG TABLETS PO SCH (22:21)
[2023-04-17] MEDS: chlordiazePOXIDE HCL 10 MG CAPSULE PO SCH ×2 (06:00→17:38)
[2023-04-17] MEDS: NICOTINE 21 MG/24 HOURS TOPICAL PATCH TD SCH (10:13)
[2023-04-17] MEDS: PRENATAL VITAMINS W/ FOLIC ACID TABLET (FP) PO SCH (10:14)
[2023-04-17 21:09] VITALS: RESP 18
[2023-04-17] MEDS: QUEtiapine FUMARATE 100 MG TABLET (FP) PO SCH (22:48)
[2023-04-17] MEDS: THIAMINE HCL 100 MG TABLET (FP) PO SCH (22:48)
[2023-04-17] MEDS: MELATONIN 5 MG TABLETS PO SCH (22:48)
[2023-04-18] MEDS ORDERED: chlordiazePOXIDE HCL 10 MG CAPSULE PO ONE (05:00)
[2023-04-18] MEDS: NICOTINE 21 MG/24 HOURS TOPICAL PATCH TD SCH (09:14)
[2023-04-18] MEDS: PRENATAL VITAMINS W/ FOLIC ACID TABLET (FP) PO SCH (09:14)
[2023-04-18 09:38] VITALS: BP 134/59; PULSE 78; TEMP 97.5
== END 2023-04-18 09:18 | disposition home or self-care (01) | DRG 775 ==
LOC: YASAS 08:18 → Y3N 10:30
PROVIDERS: ADMIT Allergy & Immunology; ATTEND Surgery
PROC: HZ2ZZZZ Detoxification Services for Substance Abuse Treatment (ICD-10-PCS; principal; 2023-04-13)
DX: F10.230 Alcohol dependence with withdrawal, uncomplicated (principal); F17.210 Nicotine dependence, cigarettes, uncomplicated; F19.282 Other psychoactive substance dependence with psychoactive substance-induced sleep disorder; F19.24 Other psychoactive substance dependence with psychoactive substance-induced mood disorder; F31.9 Bipolar disorder, unspecified; F41.9 Anxiety disorder, unspecified; Z89.022 Acquired absence of left finger(s); Z89.021 Acquired absence of right finger(s); Z56.0 Unemployment, unspecified; Z59.01 Sheltered homelessness
CPT/HCPCS: 36415; 71046-TC-FY; 80053; 85027; 86593; 86780; 87635; 87811

== ENCOUNTER 2023-05-04 16:12 | Inpatient (IN) | payer OTHER ==
[2023-05-04 16:56] VITALS: BMI 25.7
[2023-05-04] MEDS ORDERED: MAGNESIUM HYDROX 2400MG/30ML ORAL SUSPENSION 30 ML CUP PO PRN (17:23)
[2023-05-04] MEDS ORDERED: DICYCLOMINE HCL 10 MG CAPSULE PO PRN (17:23)
[2023-05-04] MEDS ORDERED: IBUPROFEN 400 MG TABLET (FP) PO PRN (17:23)
[2023-05-04] MEDS ORDERED: NALOXONE HCL 0.4 MG/ML VIAL IM PRN (17:23)
[2023-05-04] MEDS ORDERED: NICOTINE 10 MG CARTRIDGE (INHALER) IH PRN (17:23)
[2023-05-04] MEDS ORDERED: LOPERAMIDE HCL 2 MG CAPSULE PO PRN (17:23)
[2023-05-04] MEDS ORDERED: ONDANSETRON *ODT* 4 MG TABLET SL PRN (17:23)
[2023-05-04] MEDS ORDERED: METHOCARBAMOL 500 MG TABLET PO PRN (17:23)
[2023-05-04] MEDS ORDERED: guaiFENesin 600 MG TABLET.ER (FP) PO PRN (17:23)
[2023-05-04] MEDS ORDERED: BENZOCAINE/MENTHOL (CHLORASEPTIC ) LOZENGE MM PRN (17:23)
[2023-05-04] MEDS ORDERED: MAG HYDROX/AL HYDROX/SIMETH 30 ML UNIT-DOSE CUP PO PRN (17:23)
[2023-05-04] MEDS ORDERED: BISMUTH SUBSALICYLATE 524 MG/30 ML PO PRN (17:23)
[2023-05-04] MEDS ORDERED: ACETAMINOPHEN 325 MG TABLET (FP) PO PRN (17:23)
[2023-05-04] MEDS ORDERED: BENZONATATE 200 MG CAPSULE PO PRN (17:23)
[2023-05-04] MEDS ORDERED: POLYETHYLENE GLYCOL (HEALTHYLAX) 3350 17 GM PACKET PO PRN (17:23)
[2023-05-04] MEDS ORDERED: hydrOXYzine PAMOATE 25 MG CAPSULE (FP) PO PRN (17:23)
[2023-05-04] MEDS ORDERED: NALOXONE HCL (KLOXXADO) 8 MG SPRAY NS PRN (17:23)
[2023-05-04] MEDS: THIAMINE HCL 100 MG TABLET (FP) PO SCH (21:40)
[2023-05-04] MEDS: IBUPROFEN 600 MG TABLET (FP) PO PRN (21:41)
[2023-05-04] MEDS: MELATONIN 5 MG TABLETS PO SCH (21:41)
[2023-05-05] MEDS ORDERED: chlordiazePOXIDE HCL 10 MG CAPSULE PO PRN
[2023-05-05] MEDS: PRENATAL VITAMINS W/ FOLIC ACID TABLET (FP) PO SCH (10:18)
[2023-05-05] MEDS: chlordiazePOXIDE HCL 25 MG CAPSULE PO SCH ×3 (10:19→22:09)
[2023-05-05] MEDS: IBUPROFEN 600 MG TABLET (FP) PO PRN (10:20)
[2023-05-05] MEDS: THIAMINE HCL 100 MG TABLET (FP) PO SCH (22:09)
[2023-05-05] MEDS: MELATONIN 5 MG TABLETS PO SCH (22:09)
[2023-05-06] MEDS: chlordiazePOXIDE HCL 10 MG CAPSULE PO SCH ×4 (05:43→22:07)
[2023-05-06] MEDS: PRENATAL VITAMINS W/ FOLIC ACID TABLET (FP) PO SCH (10:04)
[2023-05-06] MEDS: NICOTINE 14 MG/24 HOURS TOPICAL PATCH TD SCH (11:04)
[2023-05-06] MEDS: QUEtiapine FUMARATE 100 MG TABLET (FP) PO SCH (22:06)
[2023-05-06] MEDS: MELATONIN 5 MG TABLETS PO SCH (22:06)
[2023-05-06] MEDS: THIAMINE HCL 100 MG TABLET (FP) PO SCH (22:07)
[2023-05-07] MEDS: VITAMINS A AND D TOPICAL OINTMENT 60 GM TUBE TP SCH ×5 (00:45→17:48)
[2023-05-07] MEDS: chlordiazePOXIDE HCL 10 MG CAPSULE PO SCH ×2 (05:48→17:46)
[2023-05-07] MEDS: NICOTINE 14 MG/24 HOURS TOPICAL PATCH TD SCH (10:12)
[2023-05-07] MEDS: SERTRALINE HCL 50 MG TABLET (FP) PO SCH (10:12)
[2023-05-07] MEDS: PRENATAL VITAMINS W/ FOLIC ACID TABLET (FP) PO SCH (10:12)
[2023-05-07] MEDS: MELATONIN 5 MG TABLETS PO SCH (22:11)
[2023-05-07] MEDS: QUEtiapine FUMARATE 100 MG TABLET (FP) PO SCH (22:11)
[2023-05-07] MEDS: THIAMINE HCL 100 MG TABLET (FP) PO SCH (22:11)
[2023-05-07] MEDS: IBUPROFEN 600 MG TABLET (FP) PO PRN (22:11)
[2023-05-08] MEDS: VITAMINS A AND D TOPICAL OINTMENT 60 GM TUBE TP SCH ×3 (00:40→11:10)
[2023-05-08] MEDS ORDERED: chlordiazePOXIDE HCL 10 MG CAPSULE PO ONE (05:00)
[2023-05-08] MEDS: SERTRALINE HCL 50 MG TABLET (FP) PO SCH (09:13)
[2023-05-08] MEDS: PRENATAL VITAMINS W/ FOLIC ACID TABLET (FP) PO SCH (09:13)
[2023-05-08] MEDS: NICOTINE 14 MG/24 HOURS TOPICAL PATCH TD SCH (09:13)
[2023-05-08 09:26] VITALS: BP 119/78; PULSE 73; RESP 18; TEMP 97.3
== END 2023-05-08 11:54 | disposition other institution (70) | DRG 774 ==
LOC: YASAS 16:12 → Y3N 20:55
PROVIDERS: ADMIT Allergy & Immunology; ATTEND Surgery
PROC: HZ2ZZZZ Detoxification Services for Substance Abuse Treatment (ICD-10-PCS; principal; 2023-05-04)
DX: F10.230 Alcohol dependence with withdrawal, uncomplicated (principal); F14.20 Cocaine dependence, uncomplicated; F17.210 Nicotine dependence, cigarettes, uncomplicated; F10.282 Alcohol dependence with alcohol-induced sleep disorder; F19.24 Other psychoactive substance dependence with psychoactive substance-induced mood disorder; F31.9 Bipolar disorder, unspecified; Z89.022 Acquired absence of left finger(s); Z89.021 Acquired absence of right finger(s); Z56.0 Unemployment, unspecified; Z59.02 Unsheltered homelessness
CPT/HCPCS: 87635; 87811

== ENCOUNTER 2023-06-28 10:52 | Inpatient (IN) | payer OTHER ==
[2023-06-28 11:28] VITALS: BMI 26.1
[2023-06-28] MEDS ORDERED: chlordiazePOXIDE HCL 25 MG CAPSULE PO PRN (13:01)
[2023-06-28] MEDS ORDERED: NALOXONE HCL 0.4 MG/ML VIAL IM PRN (13:01)
[2023-06-28] MEDS ORDERED: MAGNESIUM HYDROX 2400MG/30ML ORAL SUSPENSION 30 ML CUP PO PRN (13:01)
[2023-06-28] MEDS ORDERED: ACETAMINOPHEN 325 MG TABLET (FP) PO PRN (13:01)
[2023-06-28] MEDS ORDERED: LOPERAMIDE HCL 2 MG CAPSULE PO PRN (13:01)
[2023-06-28] MEDS ORDERED: POLYETHYLENE GLYCOL (HEALTHYLAX) 3350 17 GM PACKET PO PRN (13:01)
[2023-06-28] MEDS ORDERED: guaiFENesin 600 MG TABLET.ER (FP) PO PRN (13:01)
[2023-06-28] MEDS ORDERED: BENZOCAINE/MENTHOL (CHLORASEPTIC ) LOZENGE MM PRN (13:01)
[2023-06-28] MEDS ORDERED: BENZONATATE 200 MG CAPSULE PO PRN (13:01)
[2023-06-28] MEDS ORDERED: hydrOXYzine PAMOATE 25 MG CAPSULE (FP) PO PRN (13:01)
[2023-06-28] MEDS ORDERED: NALOXONE HCL (KLOXXADO) 8 MG SPRAY NS PRN (13:01)
[2023-06-28] MEDS ORDERED: IBUPROFEN 400 MG TABLET (FP) PO PRN (13:01)
[2023-06-28] MEDS ORDERED: METHOCARBAMOL 500 MG TABLET PO PRN (13:01)
[2023-06-28] MEDS ORDERED: BISMUTH SUBSALICYLATE 262 MG/15 ML BTL PO PRN (13:01)
[2023-06-28] MEDS ORDERED: IBUPROFEN 600 MG TABLET (FP) PO PRN (13:01)
[2023-06-28] MEDS ORDERED: ONDANSETRON *ODT* 4 MG TABLET SL PRN (13:01)
[2023-06-28] MEDS ORDERED: MAG HYDROX/AL HYDROX/SIMETH 30 ML UNIT-DOSE CUP PO PRN (13:01)
[2023-06-28] MEDS ORDERED: DICYCLOMINE HCL 10 MG CAPSULE PO PRN (13:01)
[2023-06-28] MEDS ORDERED: PRENATAL VITAMINS W/ FOLIC ACID TABLET (FP) PO ONE (14:17)
[2023-06-28] MEDS ORDERED: NICOTINE 14 MG/24 HOURS TOPICAL PATCH TD ONE (14:17)
[2023-06-28] MEDS: PRENATAL VITAMINS W/ FOLIC ACID TABLET (FP) PO SCH (14:21)
[2023-06-28] MEDS: NICOTINE 14 MG/24 HOURS TOPICAL PATCH TD SCH (14:21)
[2023-06-28] MEDS: chlordiazePOXIDE HCL 25 MG CAPSULE PO SCH ×2 (17:04→22:07)
[2023-06-28] MEDS: THIAMINE HCL 100 MG TABLET (FP) PO SCH (22:06)
[2023-06-28] MEDS: QUEtiapine FUMARATE 100 MG TABLET (FP) PO SCH (22:07)
[2023-06-28] MEDS: MELATONIN 5 MG TABLETS PO SCH (23:23)
[2023-06-29] MEDS: chlordiazePOXIDE HCL 25 MG CAPSULE PO SCH ×4 (06:00→23:11)
[2023-06-29] MEDS ORDERED: PATIENT'S OWN MEDICATION (NON-FORMULARY) (Sertraline Hcl [Zoloft] 100 MG Tablet) PO SCH (10:00)
[2023-06-29] MEDS: NICOTINE 14 MG/24 HOURS TOPICAL PATCH TD SCH (10:09)
[2023-06-29] MEDS: PRENATAL VITAMINS W/ FOLIC ACID TABLET (FP) PO SCH (10:09)
[2023-06-29] MEDS: SERTRALINE HCL 50 MG TABLET (FP) PO SCH (10:09)
[2023-06-29 11:40] LABS: HEMATOCRIT 37.7 % (35.4-49); HEMOGLOBIN 12.8 GM/dL (11.7-16.9); MCH 27.7 pg (25.7-33.7); MCHC 34.1 g/dl (32.0-35.9); MEAN CELL VOLUME 81.3 fl (80-96); MEAN PLT VOLUME 7.8 fl (7.5-11.1); PLATELET COUNT 378 10^3/uL (134-434); RBC 4.63 M/mm3 (4.00-5.60); RDW 14.6 % (11.9-15.9); WHITE BLOOD COUNT 9.5 K/mm3 (4.0-10.0)
[2023-06-29 11:49] LABS: POTASSIUM 3.8 mmol/L (3.5-5.1)
[2023-06-29 11:55] LABS: CALCIUM 9.1 mg/dL (8.5-10.1)
[2023-06-29 11:56] LABS: ALBUMIN 3.4 g/dl (3.4-5.0); BLOOD UREA NITROGEN 21.1 mg/dL (7-18)
[2023-06-29 11:59] LABS: CREATININE 1.1 mg/dL (0.55-1.3)
[2023-06-29 12:00] LABS: BILIRUBIN,TOTAL 0.4 mg/dL (0.2-1)
[2023-06-29] MEDS: MELATONIN 5 MG TABLETS PO SCH (23:11)
[2023-06-29] MEDS: QUEtiapine FUMARATE 100 MG TABLET (FP) PO SCH (23:11)
[2023-06-29] MEDS: THIAMINE HCL 100 MG TABLET (FP) PO SCH (23:11)
[2023-06-30] MEDS: chlordiazePOXIDE HCL 25 MG CAPSULE PO SCH ×4 (05:48→22:34)
[2023-06-30] MEDS: PRENATAL VITAMINS W/ FOLIC ACID TABLET (FP) PO SCH (10:16)
[2023-06-30] MEDS: SERTRALINE HCL 50 MG TABLET (FP) PO SCH (10:16)
[2023-06-30] MEDS: NICOTINE 14 MG/24 HOURS TOPICAL PATCH TD SCH (10:44)
[2023-06-30] MEDS: MELATONIN 5 MG TABLETS PO SCH (22:34)
[2023-06-30] MEDS: THIAMINE HCL 100 MG TABLET (FP) PO SCH (22:34)
[2023-06-30] MEDS: QUEtiapine FUMARATE 100 MG TABLET (FP) PO SCH (22:34)
[2023-07-01] MEDS ORDERED: chlordiazePOXIDE HCL 10 MG CAPSULE PO PRN
[2023-07-01] MEDS: chlordiazePOXIDE HCL 10 MG CAPSULE PO SCH ×4 (05:43→22:27)
[2023-07-01] MEDS: PRENATAL VITAMINS W/ FOLIC ACID TABLET (FP) PO SCH (10:07)
[2023-07-01] MEDS: SERTRALINE HCL 50 MG TABLET (FP) PO SCH (10:08)
[2023-07-01] MEDS: NICOTINE 14 MG/24 HOURS TOPICAL PATCH TD SCH (10:09)
[2023-07-01] MEDS: QUEtiapine FUMARATE 100 MG TABLET (FP) PO SCH (22:27)
[2023-07-01] MEDS: THIAMINE HCL 100 MG TABLET (FP) PO SCH (22:27)
[2023-07-01] MEDS: MELATONIN 5 MG TABLETS PO SCH (22:29)
[2023-07-02] MEDS: chlordiazePOXIDE HCL 10 MG CAPSULE PO SCH ×2 (05:13→17:20)
[2023-07-02] MEDS: PRENATAL VITAMINS W/ FOLIC ACID TABLET (FP) PO SCH (10:15)
[2023-07-02] MEDS: SERTRALINE HCL 50 MG TABLET (FP) PO SCH (10:15)
[2023-07-02] MEDS: NICOTINE 14 MG/24 HOURS TOPICAL PATCH TD SCH (10:15)
[2023-07-02] MEDS: MELATONIN 5 MG TABLETS PO SCH (23:12)
[2023-07-02] MEDS: THIAMINE HCL 100 MG TABLET (FP) PO SCH (23:13)
[2023-07-02] MEDS: QUEtiapine FUMARATE 100 MG TABLET (FP) PO SCH (23:13)
[2023-07-03] MEDS ORDERED: chlordiazePOXIDE HCL 10 MG CAPSULE PO ONE (05:00)
[2023-07-03 08:41] VITALS: BP 119/78; PULSE 72; RESP 16; TEMP 97.3
[2023-07-03] MEDS: SERTRALINE HCL 50 MG TABLET (FP) PO SCH (09:17)
[2023-07-03] MEDS: PRENATAL VITAMINS W/ FOLIC ACID TABLET (FP) PO SCH (09:17)
[2023-07-03] MEDS: NICOTINE 14 MG/24 HOURS TOPICAL PATCH TD SCH (09:17)
== END 2023-07-03 12:30 | disposition other institution (70) | DRG 774 ==
LOC: YASAS 10:52 → Y6N 14:11
PROVIDERS: ADMIT Allergy & Immunology; ATTEND Allergy & Immunology
PROC: HZ2ZZZZ Detoxification Services for Substance Abuse Treatment (ICD-10-PCS; principal; 2023-06-28)
DX: F10.230 Alcohol dependence with withdrawal, uncomplicated (principal); F14.20 Cocaine dependence, uncomplicated; F17.210 Nicotine dependence, cigarettes, uncomplicated; F31.9 Bipolar disorder, unspecified; F19.282 Other psychoactive substance dependence with psychoactive substance-induced sleep disorder; Z86.19 Personal history of other infectious and parasitic diseases; Z59.00 Homelessness unspecified; Z89.022 Acquired absence of left finger(s); Z89.021 Acquired absence of right finger(s)
CPT/HCPCS: 36415; 80053; 83036; 85027; 86593; 86780; 87635; 87811

== ENCOUNTER 2023-07-03 12:35 | Inpatient (IN) | payer OTHER ==
[2023-07-03] MEDS ORDERED: IBUPROFEN 400 MG TABLET (FP) PO PRN (13:13)
[2023-07-03] MEDS ORDERED: MAGNESIUM HYDROX 2400MG/30ML ORAL SUSPENSION 30 ML CUP PO PRN (13:13)
[2023-07-03] MEDS ORDERED: BENZOCAINE/MENTHOL (CHLORASEPTIC ) LOZENGE MM PRN (13:13)
[2023-07-03] MEDS ORDERED: METHOCARBAMOL 500 MG TABLET PO PRN (13:13)
[2023-07-03] MEDS ORDERED: IBUPROFEN 600 MG TABLET (FP) PO PRN (13:13)
[2023-07-03] MEDS ORDERED: BENZONATATE 200 MG CAPSULE PO PRN (13:13)
[2023-07-03] MEDS ORDERED: ACETAMINOPHEN 325 MG TABLET (FP) PO PRN (13:13)
[2023-07-03] MEDS ORDERED: AMMONIUM LACTATE 12% LOTION 225 GM BOTTLE TP PRN (13:13)
[2023-07-03] MEDS ORDERED: guaiFENesin 600 MG TABLET.ER (FP) PO PRN (13:13)
[2023-07-03] MEDS ORDERED: COLLOIDAL OATMEAL 1 BAR EACH TP PRN (13:13)
[2023-07-03] MEDS ORDERED: hydrOXYzine PAMOATE 25 MG CAPSULE (FP) PO PRN (13:13)
[2023-07-03] MEDS ORDERED: POLYETHYLENE GLYCOL (HEALTHYLAX) 3350 17 GM PACKET PO PRN (13:13)
[2023-07-03] MEDS ORDERED: NALOXONE HCL 0.4 MG/ML VIAL IVPUSH PRN (13:13)
[2023-07-03] MEDS ORDERED: LOPERAMIDE HCL 2 MG CAPSULE PO PRN (13:13)
[2023-07-03] MEDS ORDERED: NALOXONE HCL (KLOXXADO) 8 MG SPRAY NS PRN (13:13)
[2023-07-03] MEDS ORDERED: MAG HYDROX/AL HYDROX/SIMETH 30 ML UNIT-DOSE CUP PO PRN (13:13)
[2023-07-03] MEDS: THIAMINE HCL 100 MG TABLET (FP) PO SCH (21:26)
[2023-07-03] MEDS: MELATONIN 5 MG TABLETS PO SCH (21:26)
[2023-07-03] MEDS: QUEtiapine FUMARATE 200 MG TABLET PO SCH (21:27)
[2023-07-04] MEDS: SERTRALINE HCL 50 MG TABLET (FP) PO SCH (09:33)
[2023-07-04] MEDS: PRENATAL VITAMINS W/ FOLIC ACID TABLET (FP) PO SCH (09:33)
[2023-07-04] MEDS ORDERED: NICOTINE POLACRILEX 4 MG GUM BUC PRN (13:15)
[2023-07-04] MEDS: THIAMINE HCL 100 MG TABLET (FP) PO SCH (22:55)
[2023-07-04] MEDS: MELATONIN 5 MG TABLETS PO SCH (22:55)
[2023-07-04] MEDS: QUEtiapine FUMARATE 200 MG TABLET PO SCH (22:55)
[2023-07-05] MEDS: NICOTINE 14 MG/24 HOURS TOPICAL PATCH TD PRN (09:38)
[2023-07-05] MEDS: SERTRALINE HCL 50 MG TABLET (FP) PO SCH (09:38)
[2023-07-05] MEDS: PRENATAL VITAMINS W/ FOLIC ACID TABLET (FP) PO SCH (09:38)
[2023-07-05] MEDS: MELATONIN 5 MG TABLETS PO SCH (21:12)
[2023-07-05] MEDS: QUEtiapine FUMARATE 200 MG TABLET PO SCH (21:12)
[2023-07-05] MEDS: THIAMINE HCL 100 MG TABLET (FP) PO SCH (21:12)
[2023-07-06] MEDS: NICOTINE 14 MG/24 HOURS TOPICAL PATCH TD PRN (06:17)
[2023-07-06] MEDS: SERTRALINE HCL 50 MG TABLET (FP) PO SCH (09:58)
[2023-07-06] MEDS: PRENATAL VITAMINS W/ FOLIC ACID TABLET (FP) PO SCH (09:58)
[2023-07-06] MEDS: THIAMINE HCL 100 MG TABLET (FP) PO SCH (22:26)
[2023-07-06] MEDS: MELATONIN 5 MG TABLETS PO SCH (22:26)
[2023-07-06] MEDS: QUEtiapine FUMARATE 200 MG TABLET PO SCH (22:26)
[2023-07-07] MEDS: SERTRALINE HCL 50 MG TABLET (FP) PO SCH (10:27)
[2023-07-07] MEDS: PRENATAL VITAMINS W/ FOLIC ACID TABLET (FP) PO SCH (10:27)
[2023-07-07] MEDS: MELATONIN 5 MG TABLETS PO SCH (21:46)
[2023-07-07] MEDS: QUEtiapine FUMARATE 200 MG TABLET PO SCH (21:46)
[2023-07-07] MEDS: THIAMINE HCL 100 MG TABLET (FP) PO SCH (21:46)
[2023-07-08 06:31] VITALS: BP 105/54; PULSE 63; RESP 18; TEMP 97.1
== END 2023-07-08 09:10 | disposition left against medical advice (07) | DRG 770 ==
LOC: YASAS 12:35 → Y3W 12:36
PROVIDERS: ADMIT Allergy & Immunology; ATTEND Psychiatry & Neurology Pain Medicine
PROC: HZ42ZZZ Group Counseling for Substance Abuse Treatment, Cognitive-Behavioral (ICD-10-PCS; principal; 2023-07-03)
DX: F10.20 Alcohol dependence, uncomplicated (principal); F14.20 Cocaine dependence, uncomplicated; F17.210 Nicotine dependence, cigarettes, uncomplicated; F31.9 Bipolar disorder, unspecified; F10.982 Alcohol use, unspecified with alcohol-induced sleep disorder; F19.24 Other psychoactive substance dependence with psychoactive substance-induced mood disorder; E72.20 Disorder of urea cycle metabolism, unspecified; Z20.822 Contact with and (suspected) exposure to COVID-19; Z86.19 Personal history of other infectious and parasitic diseases; Z59.02 Unsheltered homelessness; Z59.01 Sheltered homelessness; F91.8 Other conduct disorders; Z91.199 Patient's noncompliance with other medical treatment and regimen due to unspecified reason
CPT/HCPCS: 36415; 82140; 86803; 87635

== ENCOUNTER 2023-09-13 10:50 | Inpatient (IN) | payer OTHER ==
[2023-09-13 11:47] VITALS: BMI 23.8
[2023-09-13] MEDS ORDERED: POLYETHYLENE GLYCOL (HEALTHYLAX) 3350 17 GM PACKET PO PRN (12:07)
[2023-09-13] MEDS ORDERED: NALOXONE HCL 0.4 MG/ML VIAL IM PRN (12:07)
[2023-09-13] MEDS ORDERED: IBUPROFEN 600 MG TABLET (FP) PO PRN (12:07)
[2023-09-13] MEDS ORDERED: NALOXONE HCL (KLOXXADO) 8 MG SPRAY NS PRN (12:07)
[2023-09-13] MEDS ORDERED: BISMUTH SUBSALICYLATE 262 MG/15 ML BTL PO PRN (12:07)
[2023-09-13] MEDS ORDERED: MAG HYDROX/AL HYDROX/SIMETH 30 ML UNIT-DOSE CUP PO PRN (12:07)
[2023-09-13] MEDS ORDERED: IBUPROFEN 400 MG TABLET (FP) PO PRN (12:07)
[2023-09-13] MEDS ORDERED: chlordiazePOXIDE HCL 25 MG CAPSULE PO PRN (12:07)
[2023-09-13] MEDS ORDERED: hydrOXYzine PAMOATE 25 MG CAPSULE (FP) PO PRN (12:07)
[2023-09-13] MEDS ORDERED: ACETAMINOPHEN 325 MG TABLET (FP) PO PRN (12:07)
[2023-09-13] MEDS ORDERED: ONDANSETRON *ODT* 4 MG TABLET SL PRN (12:07)
[2023-09-13] MEDS ORDERED: guaiFENesin 600 MG TABLET.ER (FP) PO PRN (12:07)
[2023-09-13] MEDS ORDERED: DICYCLOMINE HCL 10 MG CAPSULE PO PRN (12:07)
[2023-09-13] MEDS ORDERED: BENZOCAINE/MENTHOL (CHLORASEPTIC ) LOZENGE MM PRN (12:07)
[2023-09-13] MEDS ORDERED: BENZONATATE 200 MG CAPSULE PO PRN (12:07)
[2023-09-13] MEDS ORDERED: LOPERAMIDE HCL 2 MG CAPSULE PO PRN (12:07)
[2023-09-13] MEDS ORDERED: METHOCARBAMOL 500 MG TABLET PO PRN (12:07)
[2023-09-13] MEDS ORDERED: MAGNESIUM HYDROX 2400MG/30ML ORAL SUSPENSION 30 ML CUP PO PRN (12:07)
[2023-09-13] MEDS ORDERED: NICOTINE 14 MG/24 HOURS TOPICAL PATCH TD ONE (12:59)
[2023-09-13] MEDS ORDERED: PRENATAL VITAMINS W/ FOLIC ACID TABLET (FP) PO ONE (12:59)
[2023-09-13] MEDS: PRENATAL VITAMINS W/ FOLIC ACID TABLET (FP) PO SCH (13:03)
[2023-09-13] MEDS: NICOTINE 14 MG/24 HOURS TOPICAL PATCH TD SCH (13:03)
[2023-09-13] MEDS: chlordiazePOXIDE HCL 25 MG CAPSULE PO SCH ×2 (17:25→22:54)
[2023-09-13] MEDS: THIAMINE HCL 100 MG TABLET (FP) PO SCH (22:53)
[2023-09-13] MEDS: MELATONIN 5 MG TABLETS PO SCH (22:53)
[2023-09-14] MEDS: chlordiazePOXIDE HCL 25 MG CAPSULE PO SCH ×4 (05:42→22:33)
[2023-09-14 10:12] LABS: POTASSIUM 4.2 mmol/L (3.5-5.1)
[2023-09-14 10:17] LABS: BLOOD UREA NITROGEN 16.5 mg/dL (7-18); CALCIUM 9.4 mg/dL (8.5-10.1)
[2023-09-14 10:18] LABS: ALBUMIN 4.1 g/dl (3.4-5.0)
[2023-09-14 10:20] LABS: CREATININE 1.1 mg/dL (0.55-1.3)
[2023-09-14 10:22] LABS: BILIRUBIN,TOTAL 0.8 mg/dL (0.2-1); TOT PROT 7.6 g/dl (6.4-8.2)
[2023-09-14] MEDS: NICOTINE 14 MG/24 HOURS TOPICAL PATCH TD SCH (10:25)
[2023-09-14] MEDS: SERTRALINE HCL 50 MG TABLET (FP) PO SCH (10:26)
[2023-09-14] MEDS: PRENATAL VITAMINS W/ FOLIC ACID TABLET (FP) PO SCH (10:26)
[2023-09-14 10:37] LABS: HEMATOCRIT 44.3 % (35.4-49); HEMOGLOBIN 14.7 GM/dL (11.7-16.9); MCH 27.8 pg (25.7-33.7); MCHC 33.2 g/dl (32.0-35.9); MEAN CELL VOLUME 83.7 fl (80-96); MEAN PLT VOLUME 7.8 fl (7.5-11.1); PLATELET COUNT 433 10^3/uL (134-434); RDW 14.4 % (11.9-15.9); WHITE BLOOD COUNT 11.7 K/mm3 (4.0-10.0)
[2023-09-14] MEDS: QUEtiapine FUMARATE 100 MG TABLET (FP) PO SCH (22:32)
[2023-09-14] MEDS: MELATONIN 5 MG TABLETS PO SCH (22:32)
[2023-09-14] MEDS: THIAMINE HCL 100 MG TABLET (FP) PO SCH (22:32)
[2023-09-15] MEDS: chlordiazePOXIDE HCL 25 MG CAPSULE PO SCH ×4 (06:05→22:03)
[2023-09-15] MEDS: SERTRALINE HCL 50 MG TABLET (FP) PO SCH (10:26)
[2023-09-15] MEDS: PRENATAL VITAMINS W/ FOLIC ACID TABLET (FP) PO SCH (10:26)
[2023-09-15] MEDS: NICOTINE 14 MG/24 HOURS TOPICAL PATCH TD SCH (10:26)
[2023-09-15 16:15] LABS: URINE APPEARANCE CLEAR; URINE BILIRUBIN NEGATIVE (NEGATIVE); URINE COLOR YELLOW; URINE GLUCOSE (UA) NEGATIVE (NEGATIVE); URINE KETONE TRACE (NEGATIVE); URINE LEUK ESTERASE NEGATIVE (NEGATIVE); URINE NITRITE NEGATIVE (NEGATIVE); URINE PROTEIN NEGATIVE (NEGATIVE)
[2023-09-15] MEDS: MELATONIN 5 MG TABLETS PO SCH (22:02)
[2023-09-15] MEDS: THIAMINE HCL 100 MG TABLET (FP) PO SCH (22:03)
[2023-09-15] MEDS: QUEtiapine FUMARATE 100 MG TABLET (FP) PO SCH (22:03)
[2023-09-16] MEDS ORDERED: chlordiazePOXIDE HCL 10 MG CAPSULE PO PRN
[2023-09-16] MEDS: chlordiazePOXIDE HCL 10 MG CAPSULE PO SCH ×4 (05:52→22:00)
[2023-09-16] MEDS: PRENATAL VITAMINS W/ FOLIC ACID TABLET (FP) PO SCH (10:17)
[2023-09-16] MEDS: SERTRALINE HCL 50 MG TABLET (FP) PO SCH (10:17)
[2023-09-16] MEDS: NICOTINE 14 MG/24 HOURS TOPICAL PATCH TD SCH (10:20)
[2023-09-16] MEDS: THIAMINE HCL 100 MG TABLET (FP) PO SCH (21:57)
[2023-09-16] MEDS: MELATONIN 5 MG TABLETS PO SCH (21:58)
[2023-09-16] MEDS: QUEtiapine FUMARATE 100 MG TABLET (FP) PO SCH (21:58)
[2023-09-17] MEDS: chlordiazePOXIDE HCL 10 MG CAPSULE PO SCH ×2 (05:50→17:37)
[2023-09-17] MEDS: PRENATAL VITAMINS W/ FOLIC ACID TABLET (FP) PO SCH (10:09)
[2023-09-17] MEDS: SERTRALINE HCL 50 MG TABLET (FP) PO SCH (10:09)
[2023-09-17] MEDS: NICOTINE 14 MG/24 HOURS TOPICAL PATCH TD SCH (10:10)
[2023-09-17 11:53] LABS: HEMATOCRIT 41.4 % (35.4-49); HEMOGLOBIN 13.9 GM/dL (11.7-16.9); MCH 27.9 pg (25.7-33.7); MCHC 33.6 g/dl (32.0-35.9); MEAN CELL VOLUME 83.2 fl (80-96); MEAN PLT VOLUME 7.8 fl (7.5-11.1); PLATELET COUNT 382 10^3/uL (134-434); RBC 4.98 M/mm3 (4.00-5.60); RDW 14.3 % (11.9-15.9); WHITE BLOOD COUNT 7.2 K/mm3 (4.0-10.0)
[2023-09-17 16:57] VITALS: RESP 16
[2023-09-17 20:57] VITALS: TEMP 97.8
[2023-09-17] MEDS: MELATONIN 5 MG TABLETS PO SCH (22:17)
[2023-09-17] MEDS: QUEtiapine FUMARATE 100 MG TABLET (FP) PO SCH (22:17)
[2023-09-17] MEDS: THIAMINE HCL 100 MG TABLET (FP) PO SCH (22:17)
[2023-09-18] MEDS ORDERED: chlordiazePOXIDE HCL 10 MG CAPSULE PO ONE (05:00)
[2023-09-18 06:24] VITALS: BP 114/67; PULSE 82
== END 2023-09-18 07:55 | disposition home or self-care (01) | DRG 774 ==
LOC: YASAS 10:50 → Y3N 12:43
PROVIDERS: ADMIT Allergy & Immunology; ATTEND Surgery
PROC: HZ2ZZZZ Detoxification Services for Substance Abuse Treatment (ICD-10-PCS; principal; 2023-09-13)
DX: F10.230 Alcohol dependence with withdrawal, uncomplicated (principal); F14.20 Cocaine dependence, uncomplicated; F17.210 Nicotine dependence, cigarettes, uncomplicated; F10.282 Alcohol dependence with alcohol-induced sleep disorder; F19.282 Other psychoactive substance dependence with psychoactive substance-induced sleep disorder; F19.24 Other psychoactive substance dependence with psychoactive substance-induced mood disorder; F41.9 Anxiety disorder, unspecified; R76.8 Other specified abnormal immunological findings in serum; Z86.19 Personal history of other infectious and parasitic diseases; Z89.022 Acquired absence of left finger(s); Z89.021 Acquired absence of right finger(s)
CPT/HCPCS: 36415; 80053; 80307; 81003; 85027; 86593; 86780; 87635; 87811